=== PATIENT | male | born 1965 | race Two or more races ===

== ENCOUNTER 2019-06-21 11:07 | Inpatient (IN) | payer OTHER ==
[2019-06-21 11:59] VITALS: BMI 30.1
--- NOTE | 2019-06-21 14:45 | HP ---
CIWA Score Nausea/Vomitin Muscle Tremors: 4-Moderate,w/Arms Extend Anxiety: 4-Mod. Anxious/Guarded Agitation: 1-Slight > Activity Paroxysmal Sweats: No Perspiration Orientation: 3-Disoriented Date>2 days Tacttile Disturbances: 1-Very Mild Itch/Numbness Auditory Disturbances: 0-None Visual Disturbances: 0-None Headache: 2-Mild CIWA-Ar Total Score: 17 - Admission Criteria OASAS Guidelines: Admission for Medically Managed Detox: Requires at least one of the followin. CIWA greater than 12 2. Seizures within the past 24 hours 3. Delirium tremens within the past 24 hours 4. Hallucinations within the past 24 hours 5. Acute intervention needed for co occurring medical disorder 6. Acute intervention needed for co occurring psychiatric disorder 7. Severe withdrawal that cannot be handled at a lower level of care (continued vomiting, continued diarrhea, abnormal vital signs) requiring intravenous medication and/or fluids 8. Patient presents the following: CIWA greater than 12 Admission Criteria Met: Admission criteria met Admitting History and Physical - Admission History Source: Patient, Transfer Record Admission ROS [facility] Chief Complaint: I want to stop drinking, I want a better life, there is too much chaos and nothing gets accomplished when I drink. Allergies/Adverse Reactions: Allergies Allergy/AdvReac Type Severity Reaction Status Date / Time chlordiazepoxide AdvReac Intermediate confusion Verified 06/21/19 14:39 [From Librium] History of Present Illness: 54 yo gentleman here for detox from alcohol - does have black outs. Noted discharge paperwork from [facility] 06/20/19 - states he was there for intoxication and alcohol ketoacidosis - "CT head showed small SAH - likely to due fall from intoxication" and he was evaluted by neuro and told to f/u as outpatient and keppra started as preventive measure. urine tox + oxy and bzo - states he thinks he was given medication at [facility] for his headache and withdrawal symptoms - states he does not use oxy and does not even know what it is. Previously here for detox in 2016. Patient states he did well for awhile with not drinking for a while but when his a year ago he relapsed. He lives with his sister. Patient states he fell out of his bed while intoxicated - injured his head - needed craniotomy and was in a coma and then in a alf - he is unclear about dates but thinks two years ago. Patient with traumatic brain injury - repeatedly asking if he 'did anything wrong' and "am I in trouble". Exam Limitations: Clinical Condition - Ebola screening Have you traveled outside of the country in the last 21 days: No Have you had contact with anyone from an Ebola affected area: No - Review of Systems Constitutional: Malaise, Changes in sleep EENT: reports: No Symptoms Reported Respiratory: reports: No Symptoms reported Cardiac: reports: No Symptoms Reported GI: reports: Nausea, Poor Appetite, Indigestion, Abdominal cramping : reports: Frequency Musculoskeletal: reports: Muscle Pain, Muscle Weakness Integumentary: reports: Dryness Neuro: reports: Headache, Seizure, Tremors Endocrine: reports: No Symptoms Reported Hematology: reports: No Symptoms Reported Psychiatric: reports: Judgement Intact, Anxious Other Systems: Reviewed and Negative Patient History - Patient Medical History Hx Anemia: No Hx Asthma: No Hx Chronic Obstructive Pulmonary Disease (COPD): No Hx Cancer: No Hx Cardiac Disorders: No Hx Congestive Heart Failure: No Hx Hypertension: Yes Hx Hypercholesterolemia: No Hx Pacemaker: No HX Cerebrovascular Accident: No Hx Seizures: Yes Hx Dementia: No Hx Diabetes: Yes Hx Gastrointestinal Disorders: No Hx Liver Disease: No Hx Genitourinary Disorders: No Hx Sexually Transmitted Disorders: No Hx Renal Disease (ESRD): No Hx Thyroid Disease: No Hx Human Immunodeficiency Virus (HIV): No Hx Hepatitis C: No Hx Depression: Yes (hx meds - never hospitalized) Hx Suicide Attempt: No (denies) Hx Bipolar Disorder: No Hx Schizophrenia: No - Patient Surgical History Past Surgical History: Yes Hx Neurologic Surgery: No Hx Cataract Extraction: No Hx Cardiac Surgery: No Hx Lung Surgery: No Hx Breast Surgery: No Hx Breast Biopsy: No Hx Abdominal Surgery: No Hx Appendectomy: No Hx Cholecystectomy: No Hx Genitourinary Surgery: No Hx Section: No Hx Orthopedic Surgery: Yes (craniotomy ? 2016) Other Surgical History: RIGHT POSTERIOR NECK CYST REMOVED 2013 Anesthesia Reaction: No - PPD History Previous Implant?: Yes Documented Results: Negative w/o proof Implanted On Prior [facility] Admission?: Yes Date: 07/27/16 PPD to be Administered?: Yes - Reproductive History Patient is a Female of Child Bearing Age (11 -55 yrs old): No - Smoking Cessation Smoking history: Never smoked Have you smoked in the past 12 months: No Hx Chewing Tobacco Use: No Initiated information on smoking cessation: No - Substance & Tx. History Hx Alcohol Use: Yes Hx Substance Use: No Substance Use Type: Alcohol Hx Substance Use Treatment: Yes (detox, rehab) - Substances abused Alcohol Substance route: Oral Frequency: Daily Amount used: 2 pints vodka; six pack 16 oz beer Age of first use: 23 Date of last use: 06/21/19 Admission Physical Exam S - Vital Signs Vital Signs: Vital Signs - 24 hr 06/21/19 11:52 Temperature 97.2 F L Pulse Rate 74 Respiratory 20 Rate Blood Pressure 124/89 - Physical General Appearance: Yes: Nourished, Appropriately Dressed, Moderate Distress, Tremorous, Anxious HEENTM: Yes: EOMI, Hearing grossly Normal, Normal ENT Inspection, Normocephalic , Normal Voice Respiratory: Yes: Normal Breath Sounds, No Respiratory Distress Neck: Yes: No masses,lesions,Nodules Breast: Yes: Breast Exam Deferred Cardiology: Yes: Regular Rhythm, Regular Rate Abdominal: Yes: Flat, Soft Genitourinary: Yes: Frequency Back: Yes: Normal Inspection Musculoskeletal: Yes: full range of Motion, Gait Steady, Muscle Pain Extremities: Yes: Normal Inspection, Tremors Neurological: Yes: Alert, Other (healed craniotomy scar right side) Integumentary: Yes: Normal Color, Dry, Warm Lymphatic: Yes: Within Normal Limits - Diagnostic (1) Alcohol dependence with uncomplicated withdrawal Current Visit: Yes Status: Acute (2) Traumatic brain injury Current Visit: Yes Status: Acute Qualifiers: Encounter type: subsequent encounter Loss of consciousness presence/ duration: without LOC Qualified Code(s): S06.9X0D - Unspecified intracranial injury without loss of consciousness, subsequent encounter (3) SAH (subarachnoid hemorrhage) Current Visit: Yes Status: Acute Comment: small SAH noted on CT done at [facility] on 06/20/19 - for f/u with neuro as outpatient, put on keppra, avoid NSAIDS (4) Hypertension Current Visit: Yes Status: Chronic Qualifiers: Hypertension type: essential hypertension Qualified Code(s): I10 - Essential (primary) hypertension (5) Diabetes mellitus treated with oral medication Current Visit: Yes Status: Chronic Comment: states his BGM at home is about 120 Cleared for Admission [facility] - Detox or Rehab [facility] Level of Care: Medically Managed Detox Regimen/Protocol: Not Applicable (ativan) Breathalyzer - Breathalyzer Breathalyzer: 0.182 Urine Drug Screen - Test Device Lot number: [id number] Expiration date: 01/31/21 - Control Is test valid?: Yes - Results Drug screen NEGATIVE: No Urine drug screen results: OXY-Oxycodone, BZO-Benzodiazepines Inpatient Rehab Admission - Rehab Decision to Admit Inpatient rehab admission?: No
[2019-06-21] MEDS ORDERED: MAGNESIUM HYDROX 2400MG/30ML ORAL SUSPENSION 30 ML CUP PO PRN (15:00)
[2019-06-21] MEDS ORDERED: LORazepam 2 MG TABLET PO ONE (15:00)
[2019-06-21] MEDS ORDERED: BISMUTH SUBSALICYLATE 524 MG/30 ML UD PO PRN (15:00)
[2019-06-21] MEDS ORDERED: MAG HYDROX/AL HYDROX/SIMETH 30 ML UNIT-DOSE CUP PO PRN (15:00)
[2019-06-21] MEDS ORDERED: ACETAMINOPHEN 325 MG TABLET (FP) PO PRN (15:00)
[2019-06-21] MEDS ORDERED: MENTHOL/PHENOL 1 EACH UD MM PRN (15:00)
[2019-06-21] MEDS ORDERED: hydrOXYzine PAMOATE 25 MG CAPSULE (FP) PO PRN (15:00)
[2019-06-21] MEDS ORDERED: LORazepam 1 MG TABLET PO PRN (15:00)
[2019-06-21] MEDS ORDERED: MAGNESIUM CITRATE 300 ML BOTTLE PO PRN (15:00)
[2019-06-21] MEDS: LORazepam 2 MG TABLET PO SCH ×2 (17:37→22:10)
[2019-06-21] MEDS: metFORMIN HCL 500 MG TABLET (FP) PO SCH (17:37)
[2019-06-21] MEDS: MELATONIN 5 MG TABLETS PO PRN (22:10)
[2019-06-21] MEDS: THIAMINE HCL 100 MG TABLET (FP) PO SCH (22:10)
[2019-06-21] MEDS: levETIRAcetam 500 MG TABLET (FP) PO SCH (22:10)
[2019-06-22] MEDS: LORazepam 2 MG TABLET PO SCH ×4 (05:16→22:10)
[2019-06-22] MEDS: metFORMIN HCL 500 MG TABLET (FP) PO SCH ×2 (06:38→18:06)
[2019-06-22] MEDS: PRENATAL VITAMINS W/ FOLIC ACID TABLET (FP) PO SCH (10:28)
[2019-06-22] MEDS: levETIRAcetam 500 MG TABLET (FP) PO SCH ×2 (10:28→22:11)
[2019-06-22] MEDS: amLODIPine BESYLATE 10 MG TABLET (FP) PO SCH (10:28)
[2019-06-22 10:59] LABS: HEMATOCRIT 35.7 % (35.4-49); HEMOGLOBIN 12.3 GM/dL (11.7-16.9); MCH 27.5 pg (25.7-33.7); MCHC 34.3 g/dl (32.0-35.9); MEAN CELL VOLUME 80.1 fl (80-96); MEAN PLT VOLUME 8.8 fl (7.5-11.1); PLATELET COUNT 269 K/MM3 (134-434); RBC 4.46 M/mm3 (4.00-5.60); RDW 13.4 % (11.9-15.9); WHITE BLOOD COUNT 7.7 K/mm3 (4.0-10.0)
[2019-06-22 11:22] LABS: ALBUMIN 3.4 g/dl (3.4-5.0); BILIRUBIN,TOTAL 0.5 mg/dL (0.2-1); BLOOD UREA NITROGEN 14.4 mg/dL (7-18); CALCIUM 8.6 mg/dL (8.5-10.1); CREATININE 0.9 mg/dL (0.55-1.3); POTASSIUM 4.5 mmol/L (3.5-5.1); TOT PROT 6.6 g/dl (6.4-8.2)
--- NOTE | 2019-06-22 11:31 | CONSULT ---
[facility] Psychiatric Consult - Data Date of interview: 06/22/19 Admission source: Self-referred Identifying data: Mr Mckeon is a 54 years old single male, father of a 22 years old son, unemployed receiving public assistance, homeless seeking detox treatment for alcohol Substance Abuse History: Reports history of alcohol use. Refer to addiction counselor's summary for further information Medical History: Significant for seizure disorder, hypertension, dyslipidemia, type 2 diabetes mellitus and history of craniotomy after a fall. Psychiatric History: Reports that his first psychiatric contact was more than years ago when he was diagnosed with MDD by a psychiatrist as outpatient and started on antidepressant medication. Reports that he has been taking medication on & off since. Reports that he currently sees a staff psychiatrist at the alf where he resides and he is prescribed Prozac 40 mg/day. Denies previous psychiatric hospitalization contrary to what was repotrteed on a previous admission in July 2016. Denies previous suicidal attempt as well. At present, denies experiecing depressive symptoms, S/H ideation. Physical/Sexual Abuse/Trauma History: Denies history of being abused as a child as wel as DV relationship Additional Comment: Denies criminal history Mental Status Exam - Mental Status Exam Alert and Oriented to: Time, Place, Person Cognitive Function: Fair Patient Appearance: Well Groomed Mood: Hopeful, Euthymic Patient Behavior: Cooperative Speech Pattern: Clear Voice Loudness: Normal Thought Process: Intact, Goal Oriented Hallucinations: Denies Suicidal Ideation: Denies Homicidal Ideation: Denies Insight/Judgement: Poor Sleep: Well Appetite: Good Muscle strength/Tone: Normal Gait/Station: Normal Psychiatric Findings - Problem List ([place] 1, 2,3) (1) MDD (major depressive disorder) Current Visit: Yes Status: Chronic (2) Alcohol dependence with uncomplicated withdrawal Current Visit: Yes Status: Acute (3) Diabetes mellitus treated with oral medication Current Visit: Yes Status: Chronic Comment: states his BGM at home is about 120 (4) Hypertension Current Visit: Yes Status: Chronic Qualifiers: Hypertension type: essential hypertension Qualified Code(s): I10 - Essential (primary) hypertension (5) Dyslipidemia Current Visit: Yes Status: Chronic (6) Seizure disorder Current Visit: Yes Status: Chronic (7) SAH (subarachnoid hemorrhage) Current Visit: Yes Status: Resolved Comment: small SAH noted on CT done at [facility] on 06/20/19 - for f/u with neuro as outpatient, put on keppra, avoid NSAIDS (8) Traumatic brain injury Current Visit: Yes Status: Chronic Qualifiers: Encounter type: subsequent encounter Loss of consciousness presence/ duration: without LOC Qualified Code(s): S06.9X0D - Unspecified intracranial injury without loss of consciousness, subsequent encounter - Initial Treatment Plan Initial Treatment Plan: 1) Continue Prozac 40 mg po daily. 2) Continue inpatient detoxification
--- NOTE | 2019-06-22 12:02 | PN ---
S CIWA - CIWA Score Nausea/Vomitin-Mild Nausea/No Vomiting Muscle Tremors: 3 Anxiety: 4-Mod. Anxious/Guarded Agitation: 2 Paroxysmal Sweats: 2 Orientation: 0-Oriented Tacttile Disturbances: 1-Very Mild Itch/Numbness Auditory Disturbances: 0-None Visual Disturbances: 0-None Headache: 1-Very Mild CIWA-Ar Total Score: 14 BHS Progress Note (SOAP) Subjective: doing well with ativan detox regimen ate breakfast ambulating on hallway social with peers and staff Objective: 06/22/19 12:00 Vital Signs Temperature 97.6 F 06/22/19 09:43 Pulse Rate 93 H 06/22/19 09:43 Respiratory Rate 20 06/22/19 09:43 Blood Pressure 125/83 06/22/19 09:43 O2 Sat by Pulse Oximetry (%) Laboratory Last Values WBC 7.7 K/mm3 (4.0-10.0) 06/22/19 08:00 RBC 4.46 M/mm3 (4.00-5.60) 06/22/19 08:00 Hgb 12.3 GM/dL (11.7-16.9) 06/22/19 08:00 Hct 35.7 % (35.4-49) 06/22/19 08:00 MCV 80.1 fl (80-96) 06/22/19 08:00 MCH 27.5 pg (25.7-33.7) D 06/22/19 08:00 MCHC 34.3 g/dl (32.0-35.9) 06/22/19 08:00 RDW 13.4 % (11.9-15.9) 06/22/19 08:00 Plt Count 269 K/MM3 (134-434) D 06/22/19 08:00 MPV 8.8 fl (7.5-11.1) 06/22/19 08:00 Sodium 140 mmol/L (136-145) 06/22/19 08:00 Potassium 4.5 mmol/L (3.5-5.1) 06/22/19 08:00 Chloride 105 mmol/L (98-107) 06/22/19 08:00 Carbon Dioxide 26 mmol/L (21-32) 06/22/19 08:00 Anion Gap 9 MMOL/L (8-16) 06/22/19 08:00 BUN 14.4 mg/dL (7-18) 06/22/19 08:00 Creatinine 0.9 mg/dL (0.55-1.3) 06/22/19 08:00 Est GFR (CKD-EPI)AfAm 113.41 06/22/19 08:00 Est GFR (CKD-EPI)NonAf 97.85 06/22/19 08:00 POC Glucometer 118 UNITS (80-120) 06/22/19 05:15 Random Glucose 112 mg/dL (74-106) H 06/22/19 08:00 Calcium 8.6 mg/dL (8.5-10.1) 06/22/19 08:00 Total Bilirubin 0.5 mg/dL (0.2-1) 06/22/19 08:00 AST 15 U/L (15-37) 06/22/19 08:00 ALT 22 U/L (13-61) 06/22/19 08:00 Alkaline Phosphatase 135 U/L (45-117) H 06/22/19 08:00 Total Protein 6.6 g/dl (6.4-8.2) 06/22/19 08:00 Albumin 3.4 g/dl (3.4-5.0) 06/22/19 08:00 lab noted long history of diabetes Assessment: 06/22/19 12:01 alcohol withdrawal sx 06/22/19 12:03 report taking antihyperlipidemia medication patient can not remember the name nor dosage of the medication preferred pharmacy closed today will call tomorrow Plan: continue ativan detox regimen
[2019-06-22] MEDS: FLUoxetine HCL 20 MG CAPSULE (FP) PO SCH (15:12)
[2019-06-22] MEDS: ACETAMINOPHEN 325 MG TABLET (FP) PO PRN (19:59)
[2019-06-22] MEDS: MELATONIN 5 MG TABLETS PO PRN (22:11)
[2019-06-22] MEDS: THIAMINE HCL 100 MG TABLET (FP) PO SCH (22:11)
[2019-06-23] MEDS: LORazepam 1 MG TABLET PO SCH ×4 (05:39→22:38)
[2019-06-23] MEDS: ACETAMINOPHEN 325 MG TABLET (FP) PO PRN ×2 (05:41→16:56)
[2019-06-23] MEDS: metFORMIN HCL 500 MG TABLET (FP) PO SCH ×2 (08:05→16:55)
--- NOTE | 2019-06-23 09:57 | PN ---
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 call [phone] gemfibrozil 600 mg po daily confirmed Objective: 06/23/19 10:04 Vital Signs Temperature 98.5 F 06/23/19 09:03 Pulse Rate 91 H 06/23/19 09:03 Respiratory Rate 18 06/23/19 09:03 Blood Pressure 134/98 06/23/19 09:03 O2 Sat by Pulse Oximetry (%) Laboratory Last Values WBC 7.7 K/mm3 (4.0-10.0) 06/22/19 08:00 RBC 4.46 M/mm3 (4.00-5.60) 06/22/19 08:00 Hgb 12.3 GM/dL (11.7-16.9) 06/22/19 08:00 Hct 35.7 % (35.4-49) 06/22/19 08:00 MCV 80.1 fl (80-96) 06/22/19 08:00 MCH 27.5 pg (25.7-33.7) D 06/22/19 08:00 MCHC 34.3 g/dl (32.0-35.9) 06/22/19 08:00 RDW 13.4 % (11.9-15.9) 06/22/19 08:00 Plt Count 269 K/MM3 (134-434) D 06/22/19 08:00 MPV 8.8 fl (7.5-11.1) 06/22/19 08:00 Sodium 140 mmol/L (136-145) 06/22/19 08:00 Potassium 4.5 mmol/L (3.5-5.1) 06/22/19 08:00 Chloride 105 mmol/L (98-107) 06/22/19 08:00 Carbon Dioxide 26 mmol/L (21-32) 06/22/19 08:00 Anion Gap 9 MMOL/L (8-16) 06/22/19 08:00 BUN 14.4 mg/dL (7-18) 06/22/19 08:00 Creatinine 0.9 mg/dL (0.55-1.3) 06/22/19 08:00 Est GFR (CKD-EPI)AfAm 113.41 06/22/19 08:00 Est GFR (CKD-EPI)NonAf 97.85 06/22/19 08:00 POC Glucometer 94 UNITS (80-120) 06/23/19 05:40 Random Glucose 112 mg/dL (74-106) H 06/22/19 08:00 Calcium 8.6 mg/dL (8.5-10.1) 06/22/19 08:00 Total Bilirubin 0.5 mg/dL (0.2-1) 06/22/19 08:00 AST 15 U/L (15-37) 06/22/19 08:00 ALT 22 U/L (13-61) 06/22/19 08:00 Alkaline Phosphatase 135 U/L (45-117) H 06/22/19 08:00 Total Protein 6.6 g/dl (6.4-8.2) 06/22/19 08:00 Albumin 3.4 g/dl (3.4-5.0) 06/22/19 08:00 RPR Titer Nonreactive (NONREACTIVE) 06/22/19 08:00 lab noted Assessment: 06/23/19 10:05 alcohol withdrawal sx Plan: continue ativan detox regimen
[2019-06-23] MEDS: FLUoxetine HCL 20 MG CAPSULE (FP) PO SCH (10:04)
[2019-06-23] MEDS: PRENATAL VITAMINS W/ FOLIC ACID TABLET (FP) PO SCH (10:05)
[2019-06-23] MEDS: levETIRAcetam 500 MG TABLET (FP) PO SCH ×2 (10:05→22:38)
[2019-06-23] MEDS: amLODIPine BESYLATE 10 MG TABLET (FP) PO SCH (10:05)
[2019-06-23 10:53] LABS: CHOLESTEROL 188 mg/dL (50-200); HDL CHOLESTEROL 53 mg/dL (40-60); LDL CHOLESTEROL (ONLY SJRH) 114 mg/dL (5-100); TRIGLYCERIDES 119 mg/dL (0-150)
[2019-06-23] MEDS: METHOCARBAMOL 500 MG TABLET PO PRN (14:22)
[2019-06-23] MEDS: THIAMINE HCL 100 MG TABLET (FP) PO SCH (22:38)
[2019-06-24] MEDS ORDERED: LORazepam 0.5 MG TABLET PO PRN
[2019-06-24] MEDS: LORazepam 0.5 MG TABLET PO SCH ×4 (06:00→22:27)
[2019-06-24] MEDS: metFORMIN HCL 500 MG TABLET (FP) PO SCH ×2 (06:28→17:36)
[2019-06-24] MEDS: GEMFIBROZIL 600 MG TABLET (FP) PO SCH (06:29)
[2019-06-24] MEDS: PRENATAL VITAMINS W/ FOLIC ACID TABLET (FP) PO SCH (10:03)
[2019-06-24] MEDS: levETIRAcetam 500 MG TABLET (FP) PO SCH ×2 (10:03→22:27)
[2019-06-24] MEDS: FLUoxetine HCL 20 MG CAPSULE (FP) PO SCH (10:03)
[2019-06-24] MEDS: amLODIPine BESYLATE 10 MG TABLET (FP) PO SCH (10:03)
[2019-06-24] MEDS: ACETAMINOPHEN 325 MG TABLET (FP) PO PRN (11:39)
--- NOTE | 2019-06-24 13:14 | PN ---
S CIWA - CIWA Score Nausea/Vomitin-No Nausea/No Vomiting Muscle Tremors: 2 Anxiety: 2 Agitation: 2 Paroxysmal Sweats: No Perspiration Orientation: 0-Oriented Tacttile Disturbances: 0-None Auditory Disturbances: 0-None Visual Disturbances: 0-None Headache: 0-None Present CIWA-Ar Total Score: 6 BHS Progress Note (SOAP) Subjective: doing well with ativan detox regimen mild anxiety less tremor patient agrees return to [place] for follow up bring in medication list and lab report Objective: 06/24/19 13:11 Vital Signs Temperature 98.1 F 06/24/19 13:08 Pulse Rate 97 H 06/24/19 13:08 Respiratory Rate 18 06/24/19 13:08 Blood Pressure 144/94 06/24/19 13:08 O2 Sat by Pulse Oximetry (%) Laboratory Last Values WBC 7.7 K/mm3 (4.0-10.0) 06/22/19 08:00 RBC 4.46 M/mm3 (4.00-5.60) 06/22/19 08:00 Hgb 12.3 GM/dL (11.7-16.9) 06/22/19 08:00 Hct 35.7 % (35.4-49) 06/22/19 08:00 MCV 80.1 fl (80-96) 06/22/19 08:00 MCH 27.5 pg (25.7-33.7) D 06/22/19 08:00 MCHC 34.3 g/dl (32.0-35.9) 06/22/19 08:00 RDW 13.4 % (11.9-15.9) 06/22/19 08:00 Plt Count 269 K/MM3 (134-434) D 06/22/19 08:00 MPV 8.8 fl (7.5-11.1) 06/22/19 08:00 Sodium 140 mmol/L (136-145) 06/22/19 08:00 Potassium 4.5 mmol/L (3.5-5.1) 06/22/19 08:00 Chloride 105 mmol/L (98-107) 06/22/19 08:00 Carbon Dioxide 26 mmol/L (21-32) 06/22/19 08:00 Anion Gap 9 MMOL/L (8-16) 06/22/19 08:00 BUN 14.4 mg/dL (7-18) 06/22/19 08:00 Creatinine 0.9 mg/dL (0.55-1.3) 06/22/19 08:00 Est GFR (CKD-EPI)AfAm 113.41 06/22/19 08:00 Est GFR (CKD-EPI)NonAf 97.85 06/22/19 08:00 POC Glucometer 111 UNITS (80-120) 06/24/19 05:59 Random Glucose 112 mg/dL (74-106) H 06/22/19 08:00 Calcium 8.6 mg/dL (8.5-10.1) 06/22/19 08:00 Total Bilirubin 0.5 mg/dL (0.2-1) 06/22/19 08:00 AST 15 U/L (15-37) 06/22/19 08:00 ALT 22 U/L (13-61) 06/22/19 08:00 Alkaline Phosphatase 135 U/L (45-117) H 06/22/19 08:00 Total Protein 6.6 g/dl (6.4-8.2) 06/22/19 08:00 Albumin 3.4 g/dl (3.4-5.0) 06/22/19 08:00 Triglycerides 119 mg/dL (0-150) 06/23/19 08:00 Cholesterol 188 mg/dL (50-200) 06/23/19 08:00 Total LDL Cholesterol 114 mg/dL (5-100) H 06/23/19 08:00 HDL Cholesterol 53 mg/dL (40-60) 06/23/19 08:00 RPR Titer Nonreactive (NONREACTIVE) 06/22/19 08:00 lab noted Assessment: 06/24/19 13:13 alcohol withdrawal sx Plan: continue ativan detox regimen
[2019-06-24] MEDS: THIAMINE HCL 100 MG TABLET (FP) PO SCH (22:27)
[2019-06-25] MEDS ORDERED: LORazepam 0.5 MG TABLET PO ONE (05:00)
[2019-06-25] MEDS: GEMFIBROZIL 600 MG TABLET (FP) PO SCH (06:07)
[2019-06-25] MEDS: metFORMIN HCL 500 MG TABLET (FP) PO SCH (06:07)
[2019-06-25] MEDS: ACETAMINOPHEN 325 MG TABLET (FP) PO PRN (06:27)
[2019-06-25] MEDS: METHOCARBAMOL 500 MG TABLET PO PRN (06:29)
[2019-06-25 09:08] VITALS: BP 131/99; PULSE 91; TEMP 97.3
[2019-06-25] MEDS: levETIRAcetam 500 MG TABLET (FP) PO SCH (10:04)
[2019-06-25] MEDS: PRENATAL VITAMINS W/ FOLIC ACID TABLET (FP) PO SCH (10:04)
[2019-06-25] MEDS: FLUoxetine HCL 20 MG CAPSULE (FP) PO SCH (10:04)
[2019-06-25] MEDS: amLODIPine BESYLATE 10 MG TABLET (FP) PO SCH (10:04)
--- NOTE | 2019-06-25 15:11 | DS ---
[facility] Detox Discharge Summary Admission Date: 06/21/19 Discharge Date: 06/25/19 - History Present History: Alcohol Dependence Additional Comments: 54 years old male admitted on 06/21/19 for alcohol withdrawal sx management did well with ativan detox regimen no complication through out the detox stay patient is alert oriented x 3 respiratory clear lung bilaterally on auscultation abdomen soft round obese no rebound tenderness skin warm dry - Physical Exam Results Vital Signs: Vital Signs Temperature 97.3 F L 06/25/19 09:08 Pulse Rate 91 H 06/25/19 09:08 Respiratory Rate 16 06/25/19 09:08 Blood Pressure 131/99 06/25/19 09:08 O2 Sat by Pulse Oximetry (%) Pertinent Admission Physical Exam Findings: alcohol withdrawal sx Laboratory Last Values WBC 7.7 K/mm3 (4.0-10.0) 06/22/19 08:00 RBC 4.46 M/mm3 (4.00-5.60) 06/22/19 08:00 Hgb 12.3 GM/dL (11.7-16.9) 06/22/19 08:00 Hct 35.7 % (35.4-49) 06/22/19 08:00 MCV 80.1 fl (80-96) 06/22/19 08:00 MCH 27.5 pg (25.7-33.7) D 06/22/19 08:00 MCHC 34.3 g/dl (32.0-35.9) 06/22/19 08:00 RDW 13.4 % (11.9-15.9) 06/22/19 08:00 Plt Count 269 K/MM3 (134-434) D 06/22/19 08:00 MPV 8.8 fl (7.5-11.1) 06/22/19 08:00 Sodium 140 mmol/L (136-145) 06/22/19 08:00 Potassium 4.5 mmol/L (3.5-5.1) 06/22/19 08:00 Chloride 105 mmol/L (98-107) 06/22/19 08:00 Carbon Dioxide 26 mmol/L (21-32) 06/22/19 08:00 Anion Gap 9 MMOL/L (8-16) 06/22/19 08:00 BUN 14.4 mg/dL (7-18) 06/22/19 08:00 Creatinine 0.9 mg/dL (0.55-1.3) 06/22/19 08:00 Est GFR (CKD-EPI)AfAm 113.41 06/22/19 08:00 Est GFR (CKD-EPI)NonAf 97.85 06/22/19 08:00 POC Glucometer 106 UNITS (80-120) 06/25/19 06:12 Random Glucose 112 mg/dL (74-106) H 06/22/19 08:00 Calcium 8.6 mg/dL (8.5-10.1) 06/22/19 08:00 Total Bilirubin 0.5 mg/dL (0.2-1) 06/22/19 08:00 AST 15 U/L (15-37) 06/22/19 08:00 ALT 22 U/L (13-61) 06/22/19 08:00 Alkaline Phosphatase 135 U/L (45-117) H 06/22/19 08:00 Total Protein 6.6 g/dl (6.4-8.2) 06/22/19 08:00 Albumin 3.4 g/dl (3.4-5.0) 06/22/19 08:00 Triglycerides 119 mg/dL (0-150) 06/23/19 08:00 Cholesterol 188 mg/dL (50-200) 06/23/19 08:00 Total LDL Cholesterol 114 mg/dL (5-100) H 06/23/19 08:00 HDL Cholesterol 53 mg/dL (40-60) 06/23/19 08:00 RPR Titer Nonreactive (NONREACTIVE) 06/22/19 08:00 lab noted - Treatment Hospital Course: Detox Protocol Followed, Detoxed Safely, Responded well, Discharged Condition Good, Rehab Referral Accepted Patient has Accepted a Rehab Referral to[facility] - Medication Discharge Medications: Ambulatory Orders Amlodipine Besylate [Norvasc -] 10 mg PO DAILY 07/25/16 levETIRAcetam [Keppra -] 1,000 mg PO BID 07/25/16 Ergocalciferol [Vitamin D2] 50,000 unit PO Q7D@1000 06/21/19 Folic Acid 1 mg PO DAILY 06/21/19 Multivitamins [Multivit ([facility] Formulary)] 1 tab PO DAILY 06/21/19 Thiamine HCl [Vitamin B-1] 100 mg PO HS 06/21/19 metFORMIN HCL [Glucophage -] 500 mg PO BID 06/21/19 Gemfibrozil [Lopid -] 600 mg PO DAILY 06/23/19 - Diagnosis (1) Alcohol dependence with uncomplicated withdrawal Status: Acute (2) Diabetes mellitus treated with oral medication Status: Chronic (3) Hypertension Status: Chronic Qualifiers: Hypertension type: essential hypertension Qualified Code(s): I10 - Essential (primary) hypertension (4) Seizure Status: Chronic - AMA Did Patient Leave Against Medical Advice: No CIWA Score - CIWA Score Nausea/Vomitin-No Nausea/No Vomiting Muscle Tremors: 1-None Visible, but [place] Anxiety: 1-Mildly Anxious Agitation: 1-Slight > Activity Paroxysmal Sweats: No Perspiration Orientation: 0-Oriented Tacttile Disturbances: 0-None Auditory Disturbances: 0-None Visual Disturbances: 0-None Headache: 0-None Present CIWA-Ar Total Score: 3
== END 2019-06-25 11:40 | disposition home or self-care (01) | DRG 775 ==
LOC: YASAS 11:07 → Y3N 15:34
PROVIDERS: ADMIT Allergy & Immunology; ATTEND Allergy & Immunology
PROC: HZ2ZZZZ Detoxification Services for Substance Abuse Treatment (ICD-10-PCS; principal; 2019-06-21)
DX: F10.230 Alcohol dependence with withdrawal, uncomplicated (principal); F32.9 Major depressive disorder, single episode, unspecified; I10 Essential (primary) hypertension; E11.9 Type 2 diabetes mellitus without complications; G40.909 Epilepsy, unspecified, not intractable, without status epilepticus; E78.5 Hyperlipidemia, unspecified; Z88.8 Allergy status to other drugs, medicaments and biological substances; Z79.84 Long term (current) use of oral hypoglycemic drugs; Z87.820 Personal history of traumatic brain injury
CPT/HCPCS: 36415; 80053; 80061; 82962; 83721; 85027; 86593

== ENCOUNTER 2020-05-24 18:30 | Inpatient (IN) | payer OTHER ==
[2020-05-24 19:42] VITALS: BMI 27.1
--- NOTE | 2020-05-24 20:29 | BHS.RME ---
Substance Use & Tx History - Substance Use History Alcohol Substance amount: 10-12 drinks , 6 beers/day Frequency of use: Daily Substance route: Oral Physical/Psych/Mental Status - Behavior General Behavior: Increased activity (restlessness, agitation) Eye Contact: Normal - Cooperativeness Cooperativeness: Hostile - Thinking Thought Processes: Logical - Physical Health Problems Is patient presently having any pain?: No Does patient presently have any injuries (include location): No Does patient currently have a fever: No CIWA Nausea/Vomitin-Mild Nausea/No Vomiting Muscle Tremors: 4-Moderate,w/Arms Extend Anxiety: 2 Agitation: 4-Moderately Restless Paroxysmal Sweats: No Perspiration Orientation: 2-Disoriented Date<2 days Tacttile Disturbances: 0-None Auditory Disturbances: 0-None Visual Disturbances: 2-Mild Sensitivity Headache: 4-Moderately Severe CIWA-Ar Total Score: 19
--- NOTE | 2020-05-24 20:34 | HP ---
CIWA Score Nausea/Vomitin-Mild Nausea/No Vomiting Muscle Tremors: 4-Moderate,w/Arms Extend Anxiety: 2 Agitation: 4-Moderately Restless Paroxysmal Sweats: No Perspiration Orientation: 2-Disoriented Date<2 days Tacttile Disturbances: 0-None Auditory Disturbances: 0-None Visual Disturbances: 2-Mild Sensitivity Headache: 4-Moderately Severe CIWA-Ar Total Score: 19 - Admission Criteria OASAS Guidelines: Admission for Medically Managed Detox: Requires at least one of the followin. CIWA greater than 12 2. Seizures within the past 24 hours 3. Delirium tremens within the past 24 hours 4. Hallucinations within the past 24 hours 5. Acute intervention needed for co occurring medical disorder 6. Acute intervention needed for co occurring psychiatric disorder 7. Severe withdrawal that cannot be handled at a lower level of care (continued vomiting, continued diarrhea, abnormal vital signs) requiring intravenous medication and/or fluids 8. Admitting History and Physical - Smoking History Smoking history: Never smoked Have you smoked in the past 12 months: No - Alcohol/Substance Use Hx Alcohol Use: Yes Admission [facility] Allergies/Adverse Reactions: Allergies Allergy/AdvReac Type Severity Reaction Status Date / Time No Known Allergies Allergy Verified 05/24/20 20:38 History of Present Illness: 54 y.o. male requesting detox from alcohol use , reports 6 beers and 10 drinks /day x 20 years with minimal periods of sobriety . Denies seizures , reports occasional blackouts , tremors if not drinking , starts drinking in the mornings . pt is poor historian due to intoxication , current CHARLY 0.322 PMHX : HTN on Lisinopril , DM on Metformin, depression denies SI / HI . PShx : SDH 3 years ago 2/2 fall @ home . Exam Limitations: Clinical Condition, Intoxication - Review of Systems Constitutional: Loss of Appetite EENT: reports: Other (glasses) Respiratory: reports: No Symptoms reported Cardiac: reports: No Symptoms Reported GI: reports: Nausea, Poor Appetite : reports: No Symptoms Reported Musculoskeletal: reports: No Symptoms Reported Integumentary: reports: No Symptoms Reported Neuro: reports: Headache, Tremors Endocrine: reports: See HPI Hematology: reports: No Symptoms Reported Psychiatric: reports: Agitated, Anxious, Disorientated Patient History - Patient Medical History Hx Anemia: No Hx Asthma: No Hx Chronic Obstructive Pulmonary Disease (COPD): No Hx Cancer: No Hx Cardiac Disorders: No Hx Congestive Heart Failure: No Hx Hypertension: Yes Hx Hypercholesterolemia: No Hx Pacemaker: No HX Cerebrovascular Accident: No Hx Seizures: Yes (2016) Hx Dementia: No Hx Diabetes: Yes Hx Gastrointestinal Disorders: No Hx Liver Disease: No Hx Genitourinary Disorders: No Hx Sexually Transmitted Disorders: No Hx Renal Disease (ESRD): No Hx Thyroid Disease: No Hx Human Immunodeficiency Virus (HIV): No Hx Hepatitis C: No Hx Depression: Yes Hx Suicide Attempt: No Hx Bipolar Disorder: No Hx Schizophrenia: No - Patient Surgical History Past Surgical History: Yes Hx Neurologic Surgery: No Hx Cataract Extraction: No Hx Cardiac Surgery: No Hx Lung Surgery: No Hx Breast Surgery: No Hx Breast Biopsy: No Hx Abdominal Surgery: No Hx Appendectomy: No Hx Cholecystectomy: No Hx Genitourinary Surgery: No Hx Section: No Hx Orthopedic Surgery: Yes (craniotomy ? 2015) Other Surgical History: RIGHT POSTERIOR NECK CYST REMOVED 2013 Anesthesia Reaction: No - PPD History Date: 07/27/16 - Smoking Cessation Smoking history: Never smoked Have you smoked in the past 12 months: No Hx Chewing Tobacco Use: No - Substances abused Alcohol Substance route: Oral Frequency: Daily Amount used: liquor- 3 pits Age of first use: 22 Date of last use: 05/24/20 Admission Physical Exam BHS - Vital Signs Vital Signs: Vital Signs - 24 hr 05/24/20 19:41 Temperature 97.8 F Pulse Rate 102 H Respiratory 18 Rate Blood Pressure 123/87 - Physical General Appearance: Yes: Moderate Distress, Intoxicated, Tremorous, Irritable, Anxious HEENTM: Yes: EOMI, Hearing grossly Normal, Normocephalic, Normal Voice Respiratory: Yes: Chest Non-Tender, Lungs Clear, Normal Breath Sounds, No Respiratory Distress, No Accessory Muscle Use Neck: Yes: No masses,lesions,Nodules, Trachea in good position Cardiology: Yes: Regular Rhythm, Regular Rate, S1, S2 Abdominal: Yes: Non Tender, Soft Musculoskeletal: Yes: Gait Steady Extremities: Yes: Normal Inspection, Normal Range of Motion, Non-Tender Neurological: Yes: Alert, Motor Strength 5/5, Disoriented Integumentary: Yes: Warm - Diagnostic (1) Alcohol intoxication Current Visit: Yes Status: Acute Qualifiers: Complication of substance-induced condition: uncomplicated Qualified Code(s): F10.920 - Alcohol use, unspecified with intoxication, uncomplicated Breathalyzer - Breathalyzer Breathalyzer: 0.322 Urine Drug Screen - Test Device Lot number: [id number] Expiration date: 04/06/22 - Control Is test valid?: Yes - Results Drug screen NEGATIVE: Yes Urine drug screen results: OXY-Oxycodone, BZO-Benzodiazepines Inpatient Rehab Admission - Rehab Decision to Admit Inpatient rehab admission?: No
[2020-05-24] MEDS ORDERED: MAG HYDROX/AL HYDROX/SIMETH 30 ML UNIT-DOSE CUP PO PRN (20:43)
[2020-05-24] MEDS ORDERED: MENTHOL/PHENOL 1 EACH UD MM PRN (20:43)
[2020-05-24] MEDS ORDERED: ONDANSETRON *ODT* 4 MG TABLET SL PRN (20:43)
[2020-05-24] MEDS ORDERED: MAGNESIUM HYDROX 2400MG/30ML ORAL SUSPENSION 30 ML CUP PO PRN (20:43)
[2020-05-24] MEDS ORDERED: MELATONIN 5 MG TABLETS PO PRN (20:43)
[2020-05-24] MEDS ORDERED: ACETAMINOPHEN 325 MG TABLET (FP) PO PRN ×2 (20:43)
[2020-05-24] MEDS ORDERED: MAGNESIUM CITRATE 300 ML BOTTLE PO PRN (20:43)
[2020-05-24] MEDS ORDERED: BISMUTH SUBSALICYLATE 524 MG/30 ML UD PO PRN (20:43)
[2020-05-24] MEDS ORDERED: chlordiazePOXIDE HCL 25 MG CAPSULE PO PRN (20:47)
[2020-05-24] MEDS: THIAMINE HCL 100 MG TABLET (FP) PO SCH (21:53)
[2020-05-24] MEDS: chlordiazePOXIDE HCL 25 MG CAPSULE PO SCH (22:02)
[2020-05-25] MEDS: chlordiazePOXIDE HCL 25 MG CAPSULE PO SCH ×4 (06:31→23:39)
[2020-05-25] MEDS: metFORMIN HCL 500 MG TABLET (FP) PO SCH ×2 (06:36→17:16)
[2020-05-25 10:29] LABS: ALBUMIN 3.6 g/dl (3.4-5.0); BLOOD UREA NITROGEN 18.2 mg/dL (7-18); CALCIUM 8.3 mg/dL (8.5-10.1); CREATININE 0.8 mg/dL (0.55-1.3); POTASSIUM 4.3 mmol/L (3.5-5.1)
[2020-05-25 10:30] LABS: BILIRUBIN,TOTAL 0.6 mg/dL (0.2-1); TOT PROT 7.2 g/dl (6.4-8.2)
[2020-05-25 10:31] LABS: HEMATOCRIT 36.7 % (35.4-49); HEMOGLOBIN 12.3 GM/dL (11.7-16.9); MCH 27.9 pg (25.7-33.7); MCHC 33.6 g/dl (32.0-35.9); MEAN PLT VOLUME 8.9 fl (7.5-11.1); PLATELET COUNT 248 K/MM3 (134-434); RBC 4.42 M/mm3 (4.00-5.60); RDW 13.2 % (11.9-15.9); WHITE BLOOD COUNT 5.7 K/mm3 (4.0-10.0)
[2020-05-25] MEDS: LISINOPRIL 20 MG TABLET (FP) PO SCH (10:32)
[2020-05-25] MEDS: PRENATAL VITAMINS W/ FOLIC ACID TABLET (FP) PO SCH (10:32)
[2020-05-25] MEDS: amLODIPine BESYLATE 10 MG TABLET (FP) PO SCH (10:32)
[2020-05-25] MEDS: IBUPROFEN 400 MG TABLET (FP) PO PRN (10:34)
[2020-05-25] MEDS: GEMFIBROZIL 600 MG TABLET (FP) PO SCH (12:09)
[2020-05-25] MEDS: METHOCARBAMOL 500 MG TABLET PO PRN (12:11)
--- NOTE | 2020-05-25 12:15 | PN ---
S CIWA - CIWA Score Nausea/Vomitin-No Nausea/No Vomiting Muscle Tremors: 3 Anxiety: 3 Agitation: 3 Paroxysmal Sweats: 3 Orientation: 0-Oriented Tacttile Disturbances: 0-None Auditory Disturbances: 0-None Visual Disturbances: 0-None Headache: 0-None Present CIWA-Ar Total Score: 12 BHS Progress Note (SOAP) Subjective: sweats shakes interrupted sleep agitation restless body aches Objective: 05/25/20 12:14 Vital Signs Temperature 97.8 F 05/25/20 09:24 Pulse Rate 90 05/25/20 09:24 Respiratory Rate 05/25/20 09:24 Blood Pressure 116/70 05/25/20 09:24 O2 Sat by Pulse Oximetry (%) 97 05/25/20 06:40 Laboratory Tests 05/24/20 05/25/20 05/25/20 23:06 06:34 08:00 WBC 5.7 RBC 4.42 Hgb 12.3 Hct 36.7 MCV 83.0 MCH 27.9 MCHC 33.6 RDW 13.2 Plt Count 248 MPV 8.9 Sodium Potassium Chloride Carbon Dioxide Anion Gap BUN Creatinine Est GFR (CKD-EPI)AfAm Est GFR (CKD-EPI)NonAf POC Glucometer 108 102 Random Glucose Calcium Total Bilirubin AST ALT Alkaline Phosphatase Total Protein Albumin 05/25/20 08:00 WBC RBC Hgb Hct MCV MCH MCHC RDW Plt Count MPV Sodium 140 Potassium 4.3 Chloride 105 Carbon Dioxide 26 Anion Gap 9 BUN 18.2 H Creatinine 0.8 Est GFR (CKD-EPI)AfAm 119.04 Est GFR (CKD-EPI)NonAf 102.71 POC Glucometer Random Glucose 97 Calcium 8.3 L Total Bilirubin 0.6 AST 19 ALT 21 Alkaline Phosphatase 66 Total Protein 7.2 Albumin 3.6 labs noted mildly high BUN encouraged fluids aaox3 ambulating no acute distress Assessment: 05/25/20 12:14 withdrawals Plan: continue detox increase fluids
[2020-05-25] MEDS: traZODone HCL 50 MG TABLET (FP) PO SCH (23:39)
[2020-05-25] MEDS: THIAMINE HCL 100 MG TABLET (FP) PO SCH (23:39)
[2020-05-26] MEDS: chlordiazePOXIDE HCL 25 MG CAPSULE PO SCH ×4 (06:03→23:16)
[2020-05-26] MEDS: metFORMIN HCL 500 MG TABLET (FP) PO SCH ×2 (07:55→17:48)
[2020-05-26] MEDS: amLODIPine BESYLATE 10 MG TABLET (FP) PO SCH (10:11)
[2020-05-26] MEDS: GEMFIBROZIL 600 MG TABLET (FP) PO SCH (10:11)
[2020-05-26] MEDS: PRENATAL VITAMINS W/ FOLIC ACID TABLET (FP) PO SCH (10:11)
[2020-05-26] MEDS: LISINOPRIL 20 MG TABLET (FP) PO SCH (10:12)
[2020-05-26] MEDS: METHOCARBAMOL 500 MG TABLET PO PRN (10:13)
--- NOTE | 2020-05-26 13:08 | PN ---
[facility] CIWA - CIWA Score Nausea/Vomitin-No Nausea/No Vomiting Muscle Tremors: 3 Anxiety: 2 Agitation: 3 Paroxysmal Sweats: 3 Orientation: 0-Oriented Tacttile Disturbances: 0-None Auditory Disturbances: 0-None Visual Disturbances: 0-None Headache: 0-None Present CIWA-Ar Total Score: 11 S Progress Note (SOAP) Subjective: sweats shakes interrupted sleep body aches anxiety restless Objective: 05/26/20 13:07 Vital Signs Temperature 98.1 F 05/26/20 08:25 Pulse Rate 90 05/26/20 08:25 Respiratory Rate 15 05/26/20 08:25 Blood Pressure 142/105 H 05/26/20 08:25 O2 Sat by Pulse Oximetry (%) 99 05/26/20 08:25 Laboratory Tests 05/24/20 05/25/20 05/25/20 23:06 06:34 08:00 WBC RBC Hgb Hct MCV MCH MCHC RDW Plt Count MPV Sodium Potassium Chloride Carbon Dioxide Anion Gap BUN Creatinine Est GFR (CKD-EPI)AfAm Est GFR (CKD-EPI)NonAf POC Glucometer 108 102 Random Glucose Calcium Total Bilirubin AST ALT Alkaline Phosphatase Total Protein Albumin Syphilis Serology Non-reactive 05/25/20 05/25/20 05/25/20 08:00 08:00 16:54 WBC 5.7 RBC 4.42 Hgb 12.3 Hct 36.7 MCV 83.0 MCH 27.9 MCHC 33.6 RDW 13.2 Plt Count 248 MPV 8.9 Sodium 140 Potassium 4.3 Chloride 105 Carbon Dioxide 26 Anion Gap 9 BUN 18.2 H Creatinine 0.8 Est GFR (CKD-EPI)AfAm 119.04 Est GFR (CKD-EPI)NonAf 102.71 POC Glucometer 136 Random Glucose 97 Calcium 8.3 L Total Bilirubin 0.6 AST 19 ALT 21 Alkaline Phosphatase 66 Total Protein 7.2 Albumin 3.6 Syphilis Serology 05/26/20 06:59 WBC RBC Hgb Hct MCV MCH MCHC RDW Plt Count MPV Sodium Potassium Chloride Carbon Dioxide Anion Gap BUN Creatinine Est GFR (CKD-EPI)AfAm Est GFR (CKD-EPI)NonAf POC Glucometer 124 Random Glucose Calcium Total Bilirubin AST ALT Alkaline Phosphatase Total Protein Albumin Syphilis Serology aaox3 ambulating no acute distress elevated BP noted; will f/u after medication given Assessment: 05/26/20 13:07 withdrawals Plan: continue detox increase fluids f/u with elevated BP
[2020-05-26] MEDS: IBUPROFEN 400 MG TABLET (FP) PO PRN (17:48)
[2020-05-26] MEDS: hydrOXYzine PAMOATE 25 MG CAPSULE (FP) PO PRN (17:48)
[2020-05-26] MEDS: THIAMINE HCL 100 MG TABLET (FP) PO SCH (23:16)
[2020-05-26] MEDS: traZODone HCL 50 MG TABLET (FP) PO SCH (23:16)
[2020-05-27] MEDS ORDERED: chlordiazePOXIDE HCL 10 MG CAPSULE PO PRN
[2020-05-27] MEDS: chlordiazePOXIDE HCL 10 MG CAPSULE PO SCH ×4 (05:32→23:56)
[2020-05-27] MEDS: metFORMIN HCL 500 MG TABLET (FP) PO SCH ×2 (07:10→17:43)
[2020-05-27] MEDS: PRENATAL VITAMINS W/ FOLIC ACID TABLET (FP) PO SCH (10:15)
[2020-05-27] MEDS: GEMFIBROZIL 600 MG TABLET (FP) PO SCH (10:15)
[2020-05-27] MEDS: LISINOPRIL 20 MG TABLET (FP) PO SCH (10:15)
[2020-05-27] MEDS: hydrOXYzine PAMOATE 25 MG CAPSULE (FP) PO PRN (10:16)
[2020-05-27] MEDS: amLODIPine BESYLATE 10 MG TABLET (FP) PO SCH (10:18)
--- NOTE | 2020-05-27 13:49 | PN ---
S CIWA - CIWA Score Nausea/Vomitin-No Nausea/No Vomiting Muscle Tremors: 3 Anxiety: 2 Agitation: 2 Paroxysmal Sweats: 2 Orientation: 0-Oriented Tacttile Disturbances: 0-None Auditory Disturbances: 0-None Visual Disturbances: 0-None Headache: 0-None Present CIWA-Ar Total Score: 9 BHS Progress Note (SOAP) Subjective: sweats shakes interrupted sleep Objective: 05/27/20 13:49 Vital Signs Temperature 96.8 F L 05/27/20 13:01 Pulse Rate 96 H 05/27/20 13:01 Respiratory Rate 20 05/27/20 13:01 Blood Pressure 134/94 05/27/20 13:01 O2 Sat by Pulse Oximetry (%) 98 05/27/20 13:01 Laboratory Tests 05/24/20 05/24/20 05/25/20 09:15 23:06 06:34 WBC RBC Hgb Hct MCV MCH MCHC RDW Plt Count MPV Sodium Potassium Chloride Carbon Dioxide Anion Gap BUN Creatinine Est GFR (CKD-EPI)AfAm Est GFR (CKD-EPI)NonAf POC Glucometer 108 102 Random Glucose Calcium Total Bilirubin AST ALT Alkaline Phosphatase Total Protein Albumin Syphilis Serology COVID-19 ([facility]ONEY) Not detected 05/25/20 05/25/20 05/25/20 08:00 08:00 08:00 WBC 5.7 RBC 4.42 Hgb 12.3 Hct 36.7 MCV 83.0 MCH 27.9 MCHC 33.6 RDW 13.2 Plt Count 248 MPV 8.9 Sodium 140 Potassium 4.3 Chloride 105 Carbon Dioxide 26 Anion Gap 9 BUN 18.2 H Creatinine 0.8 Est GFR (CKD-EPI)AfAm 119.04 Est GFR (CKD-EPI)NonAf 102.71 POC Glucometer Random Glucose 97 Calcium 8.3 L Total Bilirubin 0.6 AST 19 ALT 21 Alkaline Phosphatase 66 Total Protein 7.2 Albumin 3.6 Syphilis Serology Non-reactive COVID-19 (HONEY) 05/25/20 05/26/20 05/26/20 16:54 06:59 17:43 WBC RBC Hgb Hct MCV MCH MCHC RDW Plt Count MPV Sodium Potassium Chloride Carbon Dioxide Anion Gap BUN Creatinine Est GFR (CKD-EPI)AfAm Est GFR (CKD-EPI)NonAf POC Glucometer 136 124 143 Random Glucose Calcium Total Bilirubin AST ALT Alkaline Phosphatase Total Protein Albumin Syphilis Serology COVID-19 (HONEY) 05/27/20 05:31 WBC RBC Hgb Hct MCV MCH MCHC RDW Plt Count MPV Sodium Potassium Chloride Carbon Dioxide Anion Gap BUN Creatinine Est GFR (CKD-EPI)AfAm Est GFR (CKD-EPI)NonAf POC Glucometer 115 Random Glucose Calcium Total Bilirubin AST ALT Alkaline Phosphatase Total Protein Albumin Syphilis Serology COVID-19 (HONEY) labs noted aaox3 ambulating no acute distress Assessment: 05/27/20 13:57 withdrawals Plan: continue detox
[2020-05-27] MEDS: THIAMINE HCL 100 MG TABLET (FP) PO SCH (23:56)
[2020-05-27] MEDS: traZODone HCL 50 MG TABLET (FP) PO SCH (23:56)
[2020-05-28] MEDS ORDERED: chlordiazePOXIDE HCL 10 MG CAPSULE PO SCH (05:00)
[2020-05-28] MEDS: hydrOXYzine PAMOATE 25 MG CAPSULE (FP) PO PRN (05:34)
[2020-05-28] MEDS: metFORMIN HCL 500 MG TABLET (FP) PO SCH (07:58)
[2020-05-28 09:23] VITALS: BP 138/87; PULSE 102; TEMP 98
--- NOTE | 2020-05-28 09:42 | PN ---
S CIWA - CIWA Score Nausea/Vomitin-No Nausea/No Vomiting Muscle Tremors: None Anxiety: 1-Mildly Anxious Agitation: 1-Slight > Activity Paroxysmal Sweats: No Perspiration Orientation: 0-Oriented Tacttile Disturbances: 0-None Auditory Disturbances: 0-None Visual Disturbances: 0-None Headache: 0-None Present CIWA-Ar Total Score: 2 BHS Progress Note (SOAP) Subjective: feeling better little anxiety Objective: 05/28/20 09:41 Vital Signs Temperature 98.0 F 05/28/20 09:04 Pulse Rate 102 H 05/28/20 09:04 Respiratory Rate 05/28/20 09:04 Blood Pressure 138/87 05/28/20 09:04 O2 Sat by Pulse Oximetry (%) 100 05/28/20 09:04 Laboratory Tests 05/24/20 05/24/20 05/25/20 09:15 23:06 06:34 WBC RBC Hgb Hct MCV MCH MCHC RDW Plt Count MPV Sodium Potassium Chloride Carbon Dioxide Anion Gap BUN Creatinine Est GFR (CKD-EPI)AfAm Est GFR (CKD-EPI)NonAf POC Glucometer 108 102 Random Glucose Calcium Total Bilirubin AST ALT Alkaline Phosphatase Total Protein Albumin Syphilis Serology COVID-19 (HONEY) Not detected 05/25/20 05/25/20 05/25/20 08:00 08:00 08:00 WBC 5.7 RBC 4.42 Hgb 12.3 Hct 36.7 MCV 83.0 MCH 27.9 MCHC 33.6 RDW 13.2 Plt Count 248 MPV 8.9 Sodium 140 Potassium 4.3 Chloride 105 Carbon Dioxide 26 Anion Gap 9 BUN 18.2 H Creatinine 0.8 Est GFR (CKD-EPI)AfAm 119.04 Est GFR (CKD-EPI)NonAf 102.71 POC Glucometer Random Glucose 97 Calcium 8.3 L Total Bilirubin 0.6 AST 19 ALT 21 Alkaline Phosphatase 66 Total Protein 7.2 Albumin 3.6 Syphilis Serology Non-reactive COVID-19 ([facility]ONEY) 05/25/20 05/26/20 05/26/20 16:54 06:59 17:43 WBC RBC Hgb Hct MCV MCH MCHC RDW Plt Count MPV Sodium Potassium Chloride Carbon Dioxide Anion Gap BUN Creatinine Est GFR (CKD-EPI)AfAm Est GFR (CKD-EPI)NonAf POC Glucometer 136 124 143 Random Glucose Calcium Total Bilirubin AST ALT Alkaline Phosphatase Total Protein Albumin Syphilis Serology COVID-19 (HONEY) 05/27/20 05/27/20 05/28/20 05:31 16:52 05:32 WBC RBC Hgb Hct MCV MCH MCHC RDW Plt Count MPV Sodium Potassium Chloride Carbon Dioxide Anion Gap BUN Creatinine Est GFR (CKD-EPI)AfAm Est GFR (CKD-EPI)NonAf POC Glucometer 115 136 105 Random Glucose Calcium Total Bilirubin AST ALT Alkaline Phosphatase Total Protein Albumin Syphilis Serology COVID-19 (HONEY) labs noted aaox3 ambulating no acute distress lungs CTA Assessment: 05/28/20 09:41 no s/s of withdrawals Plan: d/c today to rehab
--- NOTE | 2020-05-28 09:44 | DS ---
[facility] Detox Discharge Summary Admission Date: 05/24/20 Discharge Date: 05/28/20 - History Present History: Alcohol Dependence - Physical Exam Results Vital Signs: Vital Signs Temperature 98.0 F 05/28/20 09:04 Pulse Rate 102 H 05/28/20 09:04 Respiratory Rate 05/28/20 09:04 Blood Pressure 138/87 05/28/20 09:04 O2 Sat by Pulse Oximetry (%) 100 05/28/20 09:04 Pertinent Admission Physical Exam Findings: Vital Signs Temperature 98.0 F 05/28/20 09:04 Pulse Rate 102 H 05/28/20 09:04 Respiratory Rate 05/28/20 09:04 Blood Pressure 138/87 05/28/20 09:04 O2 Sat by Pulse Oximetry (%) 100 05/28/20 09:04 Laboratory Tests 05/24/20 05/24/20 05/25/20 09:15 23:06 06:34 WBC RBC Hgb Hct MCV MCH MCHC RDW Plt Count MPV Sodium Potassium Chloride Carbon Dioxide Anion Gap BUN Creatinine Est GFR (CKD-EPI)AfAm Est GFR (CKD-EPI)NonAf POC Glucometer 108 102 Random Glucose Calcium Total Bilirubin AST ALT Alkaline Phosphatase Total Protein Albumin Syphilis Serology COVID-19 ([facility]ONEY) Not detected 05/25/20 05/25/20 05/25/20 08:00 08:00 08:00 WBC 5.7 RBC 4.42 Hgb 12.3 Hct 36.7 MCV 83.0 MCH 27.9 MCHC 33.6 RDW 13.2 Plt Count 248 MPV 8.9 Sodium 140 Potassium 4.3 Chloride 105 Carbon Dioxide 26 Anion Gap 9 BUN 18.2 H Creatinine 0.8 Est GFR (CKD-EPI)AfAm 119.04 Est GFR (CKD-EPI)NonAf 102.71 POC Glucometer Random Glucose 97 Calcium 8.3 L Total Bilirubin 0.6 AST 19 ALT 21 Alkaline Phosphatase 66 Total Protein 7.2 Albumin 3.6 Syphilis Serology Non-reactive COVID-19 ([facility]ONEY) 05/25/20 05/26/20 05/26/20 16:54 06:59 17:43 WBC RBC Hgb Hct MCV MCH MCHC RDW Plt Count MPV Sodium Potassium Chloride Carbon Dioxide Anion Gap BUN Creatinine Est GFR (CKD-EPI)AfAm Est GFR (CKD-EPI)NonAf POC Glucometer 136 124 143 Random Glucose Calcium Total Bilirubin AST ALT Alkaline Phosphatase Total Protein Albumin Syphilis Serology COVID-19 (HONEY) 05/27/20 05/27/20 05/28/20 05:31 16:52 05:32 WBC RBC Hgb Hct MCV MCH MCHC RDW Plt Count MPV Sodium Potassium Chloride Carbon Dioxide Anion Gap BUN Creatinine Est GFR (CKD-EPI)AfAm Est GFR (CKD-EPI)NonAf POC Glucometer 115 136 105 Random Glucose Calcium Total Bilirubin AST ALT Alkaline Phosphatase Total Protein Albumin Syphilis Serology COVID-19 ([facility]ONEY) labs noted aaox3 ambulating no acute distress lungs CTA - Treatment Hospital Course: Detox Protocol Followed, Detoxed Safely, Responded well, Discharged Condition Good, Rehab Referral Accepted - Medication Discharge Medications: Ambulatory Orders Amlodipine Besylate [Norvasc -] 10 mg PO DAILY 07/25/16 Ergocalciferol [Vitamin D2] 50,000 unit PO Q7D@1000 06/21/19 Folic Acid 1 mg PO DAILY 06/21/19 Multivitamins [Multivit ([facility] Formulary)] 1 tab PO DAILY 06/21/19 Thiamine HCl [Vitamin B-1] 100 mg PO HS 06/21/19 metFORMIN HCL [Glucophage -] 500 mg PO BID 06/21/19 Gemfibrozil [Lopid -] 600 mg PO DAILY 06/23/19 Doxepin HCl [Sinequan -] 25 mg PO HS 05/24/20 Ibuprofen [Motrin -] 800 mg PO TID 05/24/20 Lisinopril [Prinivil] 20 mg PO DAILY 05/24/20 - Diagnosis (1) Alcohol intoxication Current Visit: Yes Status: Acute Qualifiers: Complication of substance-induced condition: uncomplicated Qualified Code(s): F10.920 - Alcohol use, unspecified with intoxication, uncomplicated (2) Alcohol dependence with uncomplicated withdrawal Current Visit: No Status: Acute (3) Diabetes mellitus treated with oral medication Current Visit: No Status: Chronic (4) Dry skin dermatitis Current Visit: No Status: Chronic (5) Dyslipidemia Current Visit: No Status: Chronic (6) Hypertension Current Visit: No Status: Chronic Qualifiers: Hypertension type: essential hypertension Qualified Code(s): I10 - Essential (primary) hypertension (7) Liver enzyme elevation Current Visit: No Status: Chronic (8) MDD (major depressive disorder) Current Visit: No Status: Chronic (9) Seizure Current Visit: No Status: Chronic (10) Seizure disorder Current Visit: No Status: Chronic (11) Traumatic brain injury Current Visit: No Status: Chronic Qualifiers: Encounter type: subsequent encounter Loss of consciousness presence/duration: without LOC Qualified Code(s): S06.9X0D - Unspecified intracranial injury without loss of consciousness, subsequent encounter (12) SAH (subarachnoid hemorrhage) Current Visit: No Status: Resolved - AMA Did Patient Leave Against Medical Advice: No
[2020-05-28] MEDS: amLODIPine BESYLATE 10 MG TABLET (FP) PO SCH (10:25)
[2020-05-28] MEDS: PRENATAL VITAMINS W/ FOLIC ACID TABLET (FP) PO SCH (10:25)
[2020-05-28] MEDS: LISINOPRIL 20 MG TABLET (FP) PO SCH (10:25)
[2020-05-28] MEDS: GEMFIBROZIL 600 MG TABLET (FP) PO SCH (10:25)
[2020-05-29] MEDS ORDERED: chlordiazePOXIDE HCL 10 MG CAPSULE PO ONE (05:00)
== END 2020-05-28 12:51 | disposition other institution (70) | DRG 775 ==
LOC: YASAS 18:30 → Y6N 20:59
PROVIDERS: ADMIT Allergy & Immunology; ATTEND Allergy & Immunology
PROC: HZ2ZZZZ Detoxification Services for Substance Abuse Treatment (ICD-10-PCS; principal; 2020-05-24)
DX: F10.230 Alcohol dependence with withdrawal, uncomplicated (principal); F32.9 Major depressive disorder, single episode, unspecified; F10.220 Alcohol dependence with intoxication, uncomplicated; I10 Essential (primary) hypertension; E78.5 Hyperlipidemia, unspecified; E11.9 Type 2 diabetes mellitus without complications; Z79.84 Long term (current) use of oral hypoglycemic drugs; L85.3 Xerosis cutis; R74.8 Abnormal levels of other serum enzymes; Z86.69 Personal history of other diseases of the nervous system and sense organs; Z87.820 Personal history of traumatic brain injury; Z98.890 Other specified postprocedural states
CPT/HCPCS: 36415; 80053; 82962; 85027; 86780; U0003

== ENCOUNTER 2020-05-28 13:10 | Inpatient (IN) | payer OTHER ==
--- OUTSIDE RECORDS SUMMARY | 2020-05-28 14:41 | XMS ---
:1965 Author Organization [facility] Care Team Providers Name Role Phone SAHIL BLACK MD Unavailable Unavailable MD MARIA DEL CARMEN Unavailable Unavailable MD STEPHANIE Unavailable Unavailable Re-disclosure Warning The records that you are about to access may contain information from federally- assisted alcohol or drug abuse programs. If such information is present, then the following federally mandated warning applies: This information has been disclosed to you from records protected by federal confidentiality rules (42 CFR part 2). The federal rules prohibit you from making any further disclosure of this information unless further disclosure is expressly permitted by the written consent of the person to whom it pertains or as otherwise permitted by 42 CFR part 2. A general authorization for the release of medical or other information is NOT sufficient for this purpose. The Federal rules restrict any use of the information to criminally investigate or prosecute any alcohol or drug abuse patient.The records that you are about to access may contain highly sensitive health information, the redisclosure of which is protected by Article 27-F of the [facility] Public Health law. If you continue you may haveaccess to information: Regarding HIV / AIDS; Provided by facilities licensed or operated by the [facility] Office of Mental Health; or Provided by the [facility] Office for People With Developmental Disabilities. If such information is present, then the following [facility] mandated warning applies: This information has been disclosed to you from confidential records which are protected by state law. State law prohibits you from making any further disclosure of this information without the specific written consent of the person to whom it pertains, or as otherwise permitted by law. Any unauthorized further disclosure in violation of state law may result in a fine or correction sentence or both. A general authorization for the release of medical or other information is NOT sufficient authorization for further disclosure. Encounters Encounter Providers Location Date Indications Data Source(s ) Inpatient Attender: SAHIL MYERSV-1D 06/25/2019 [facility] SURBNSHANYANAttender: 04:01:00 PM Antwan THOMAS EDT - ALOEZOSAdmitter: 07/09/2019 TREY JOYCE 10:12:00 PM EST Patient discharged. Outpatient ST 06/25/2019 12:17:00 PM EDT - 019 [facility] 08:27:00 PM EDT Patient discharged. Medications Medication Brand Start Product Dose Route Administrative Pharmacy [facility] Indications Reaction Description Data Name Date Form Instructions Instructions Source(s) Metformin metFOR ORAL complet metFORMI N [facility] hydrochlori MIN 2018 Table ed HCl - 500 MG [facility] 500 MG HCl - 12:00: t ORAL Tablet Hospital Oral Tablet 500 MG 00 AM ORAL EST Tablet Gemfibrozil Gemfib ORAL complet Gemfib rozil [facility] 600 MG Oral rozil 2018 Table ed - 600 MG Vi ncents Tablet - 600 12:00: t ORAL Tablet Hos pital MG 00 AM ORAL EST Tablet Acamprosate Acampr ORAL complet Acampr osate [facility] calcium 333 osate 2018 Table ed Calcium - [facility] MG Delayed Calciu 12:00: t 333 MG ORA L Hospital Release m - 00 AM Tablet, Oral Tablet 333 MG EST Delayed ORAL Release Tablet , Delaye d Releas e Levetiracet levETI ORAL complet levETI RAceta [facility] am 1000 MG RAceta 2018 Table ed m AvPak - [facility] Oral Tablet m 12:00: t 1000 MG ORA L [facility] AvPak 00 AM Tablet - 1000 EST MG ORAL Tablet Fluoxetine PROzac ORAL complet PROzac - 40 [facility] 40 MG Oral - 40 2018 Capsu ed MG ORAL Will nts Capsule MG 12:00: le Capsule Hospita l [Prozac] ORAL 00 AM Capsul EST e Amlodipine Norvas ORAL complet Norvasc - 10 [facility] 10 MG Oral c - 10 2018 Table ed MG ORAL Ran cents Tablet MG 12:00: t Tablet Hospital [[facility]] ORAL 00 AM Tablet EST Insurance Providers Payer name Policy type Policy ID Covered Covered libertarian's Policy P soraya / Coverage libertarian ID relationship to Anand Inf ormation type anand [employer] [id number] SP [id number] R [employer] [id number] SP [id number] R SELF PAY 00 Self 00 MEDICAID INP [id number] Self [id number] R RE[facility]AB [facility] [id number] Self [id number] FIRST Problems, Conditions, and Diagnoses Code Display Name Description Problem Type Effective Data Sour ce(s) Dates F10.20 Alcohol dependence, Alcohol Diagnosis 07/09/2019 [facility]com[facility] dependence, 10:48:00 AM Hospital uncomplicated EST Results ID Date Data Source [id number] 05/24/2020 09:15:00 AM EDT [facility] Name Value Range Interpretation Description Data Sup porting Code Source(s) Document(s ) SARS [facility] coronavirus 2 RNA This lab was ordered by [facility] rebeca Corbin and reported by [facility]. ID Date Data Source [id number] 02/04/2020 10:48:00 AM EDT [facility] Name Value Range Interpretation Code Description Data Fatimah rce(s) Supporting Document(s ) SARS-CoV-2 [facility] RNA Resp Ql HONEY+probe [facility] reported by [facility]. ID Date Data Source [id number] 02/04/2020 10:48:00 AM EDT [facility] Name Value Range Interpretation Code Description Data Fatimah rce(s) Supporting Document(s ) SARS-CoV-2 [facility] RNA Resp Ql HONEY+probe [facility] lab [facility] reported by [facility]. ID Date Data Source [id number] 02/04/2020 10:48:00 AM EDT [facility] Name Value Range Interpretation Code Description Data Fatimah rce(s) Supporting Document(s ) 2019-nCoV [facility] RNA XXX HONEY+probe- Imp This lab [facility] and reported by [facility]. Procedure Vital Signs ID Date Data Source UNK Name Value Range Interpretation Code Description Data Source(s) Diastolic blood 99 mmHg 99 mmHg [facility] pressure [facility] Systolic blood 156 mmHg 156 mmHg [facility] Respiratory rate 18 bpm 18 bpm [facility] Heart rate 93 bpm 93 bpm [facility] Body temperature 97.6 [facility] 97.6 [facility] Diastolic blood 82 mmHg 82 mmHg [facility] Systolic blood 133 mmHg 133 mmHg [facility] Respiratory rate 20 bpm 20 bpm [facility] Heart rate 90 bpm 90 bpm [facility] Body temperature 96.5 [facility] 96.5 [facility] Diastolic blood 83 mmHg 83 mmHg [facility] Systolic blood 130 mmHg 130 mmHg [facility] Respiratory rate 18 bpm 18 bpm [facility] Heart rate 85 bpm 85 bpm [facility] Body weight 210 lbs 210 lbs [facility] Diastolic blood 94 mmHg 94 mmHg [facility] Systolic blood 135 mmHg 135 mmHg [facility] Respiratory rate 18 bpm 18 bpm [facility] Heart rate 97 bpm 97 bpm [facility] Body temperature 97.6 [facility]ahrenheit 97.6 [facility] Diastolic blood 94 mmHg 94 mmHg [facility] Systolic blood 135 mmHg 135 mmHg [facility] Respiratory rate 18 bpm 18 bpm [facility] Heart rate 97 bpm 97 bpm [facility] Body temperature 97.6 [facility] 97.6 [facility] Diastolic blood 81 mmHg 81 mmHg [facility] Systolic blood 117 mmHg 117 mmHg [facility] Respiratory rate 18 bpm 18 bpm [facility] Heart rate 77 bpm 77 bpm [facility] Body temperature 97.1 Fahrenheit 97.1 [facility] Diastolic blood 91 mmHg 91 mmHg [facility] Systolic blood 130 mmHg 130 mmHg [facility] Respiratory rate 18 bpm 18 bpm [facility] Heart rate 80 bpm 80 bpm [facility] Body temperature 97.0 Fahrenheit 97.0 [facility] Diastolic blood 82 mmHg 82 mmHg [facility] Systolic blood 122 mmHg 122 mmHg [facility] Respiratory rate 16 bpm 16 bpm [facility] Heart rate 71 bpm 71 bpm [facility] Body temperature 97.1 Fahrenheit 97.1 [facility] Diastolic blood 89 mmHg 89 mmHg [facility] Systolic blood 130 mmHg 130 mmHg [facility] Respiratory rate 18 bpm 18 bpm [facility] Heart rate 86 bpm 86 bpm [facility] Diastolic blood 94 mmHg 94 mmHg [facility] Systolic blood 136 mmHg 136 mmHg [facility] Respiratory rate 18 bpm 18 bpm [facility] Heart rate 88 bpm 88 bpm [facility] Body temperature 96.8 Fahrenheit 96.8 [facility] Diastolic blood 88 mmHg 88 mmHg [facility] Systolic blood 138 mmHg 138 mmHg [facility] Respiratory rate 18 bpm 18 bpm [facility] Heart rate 77 bpm 77 bpm [facility] Body weight 214 lbs 214 lbs [facility] Diastolic blood 88 mmHg 88 mmHg [facility] Systolic blood 132 mmHg 132 mmHg [facility] Respiratory rate 18 bpm 18 bpm [facility] Heart rate 82 bpm 82 bpm [facility] Diastolic blood 90 mmHg 90 mmHg [facility] Systolic blood 132 mmHg 132 mmHg [facility] Respiratory rate 18 bpm 18 bpm [facility] Heart rate 82 bpm 82 bpm [facility] Body temperature 97.3 Fahrenheit 97.3 [facility] Diastolic blood 89 mmHg 89 mmHg [facility] Systolic blood 128 mmHg 128 mmHg [facility] Respiratory rate 18 bpm 18 bpm [facility] Heart rate 83 bpm 83 bpm [facility] Body temperature 97.3 Fahrenheit 97.3 [facility] Diastolic blood 90 mmHg 90 mmHg [facility] Systolic blood 133 mmHg 133 mmHg [facility] Respiratory rate 18 bpm 18 bpm [facility] Heart rate 84 bpm 84 bpm [facility] Body temperature 96.1 Fahrenheit 96.1 [facility]
--- NOTE | 2020-05-28 15:02 | HP ---
[facility] Rehab Assess/Revision - Admission History Admitted to Rehab from: [address] Date of Admission to Rehab: 05/28/20 - Vital signs Vital Signs: Vital Signs Period Temp Pulse Resp BP Sys/Galarza Pulse Ox Last 24 Hr 98 F 102 18 113/71 97 - Findings Detox History & Physical reviewed: Yes Concur with findings: Yes Comments/Additional Findings: Pt is a 54 y/o male admitted to rehab this afternoon from [address] Reports he has PCP, Dr. Ryan butterfield [place]. PMHx:HTN,DM. Psych hx:Depression. Alert o x 3. nad. oob ambulating with steady gait. extremities:no edema, skin warm, intact. S/P detox. DM. HTN. depression. Increase po fluids. maintain safety. psych consult follow up. Addendum:Pt reports to rehab nurse that he is on Doxepin and Prozac. Pt was not seen or take these meds in detox before coming to rehab. Pt will need to be referred to psych for consult to restart meds. Inpatient Rehab Admission - Rehab Decision to Admit Inpatient rehab admission?: Yes - Initial Determination Are CD services needed?: Yes Free of communicable disease: Yes Not in need of hospitalization: Yes - Rehab Admission Criteria Previous failed treatment: Yes Poor recovery environment: Yes Comorbidities: Yes Lacks judgement: Yes Patient is meeting Inpatient Rehab admission criteria:: Yes
[2020-05-28] MEDS ORDERED: MAG HYDROX/AL HYDROX/SIMETH 30 ML UNIT-DOSE CUP PO PRN (15:04)
[2020-05-28] MEDS ORDERED: LOPERAMIDE HCL 2 MG CAPSULE PO PRN (15:04)
[2020-05-28] MEDS ORDERED: MAGNESIUM HYDROX 2400MG/30ML ORAL SUSPENSION 30 ML CUP PO PRN (15:04)
[2020-05-28] MEDS ORDERED: ACETAMINOPHEN 325 MG TABLET (FP) PO PRN (15:04)
[2020-05-28] MEDS ORDERED: NICOTINE POLACRILEX 2 MG GUM BUC PRN (15:04)
[2020-05-28] MEDS ORDERED: MENTHOL/PHENOL 1 EACH UD MM PRN (15:04)
[2020-05-28] MEDS ORDERED: guaiFENesin 200 MG/10 ML 10 ML UNIT-DOSE CUPS PO PRN (15:04)
[2020-05-28] MEDS ORDERED: MAGNESIUM CITRATE 300 ML BOTTLE PO PRN (15:04)
[2020-05-28] MEDS ORDERED: P-EPHED 60MG/TRIPROLIDI 2.5MG TABLET PO PRN (15:04)
--- NOTE | 2020-05-28 15:54 | CONSULT ---
[facility] Psychiatric Consult - Data Date of interview: 05/28/20 Admission source: [facility] Identifying data: Detoxification completed at [address] [place] [id number]. First admission to [address] for this 54 y/o male seeking continuity of care for maintenance of sobriety, via rehabilitation, in addition to management of co- morbid depression + anxiety. GARRISON issue : alcohol. Patient is single, a father of one, homeless ([facility] : [facility]), unemployed and supported on welfare. Substance Abuse History: Discussed with the patient. GARRISON profile as follows : Smoking history: Never smoked. Have you smoked in the past 12 months: No. Hx Chewing Tobacco Use: No. Substances abused. Alcohol. Substance route: Oral. Frequency: Daily. Amount used: liquor- 3 pits. Age of first use: 22. Date of last use: 05/24/20. Patient indicates that he has been able to remain sober for a period of seven months. Mr Mckeon has reportedly been, in the past, on acamprosate and SANDERS naltrexone (Vivitrol). Medical History: Medical profile is remarkable for traumatic brain injury (fall), seizure disorder, hypertension, dyslipidemia, type 2 diabetes mellitus and history of craniotomy (sub-arachnoid hemorrhage). Psychiatric History: Patient denies history of psychiatric hospitalizations. Diagnosed, years ago, with MDD and prescribed antidepressant medications (SSRI's) + TCA (doxepin for insomnia). Mr Mckeon is currently seeing a psychiatrist at the [facility] (managed with prozac 40 mg). Not always adherent to his medications. Patient denies history of suicide attempts. Physical/Sexual Abuse/Trauma History: Patient denies. Additional Comment: Urine drug screen results: OXY-Oxycodone, BZO- Benzodiazepines. Noted. Mental Status Exam - Mental Status Exam Alert and Oriented to: Time, Place, Person Cognitive Function: Good Patient Appearance: Well Groomed Mood: Anxious, Hopeful Affect: Appropriate, Normal Range Patient Behavior: Appropriate, Cooperative (friendly) Speech Pattern: Clear, Appropriate Voice Loudness: Normal Thought Process: Intact, Goal Oriented Thought Disorder: Not Present Hallucinations: Denies Suicidal Ideation: Denies Homicidal Ideation: Denies Insight/Judgement: Poor Sleep: Poorly, Difficulty falling asleep Appetite: Good Gait/Station: Normal Psychiatric Findings - Problem List ([place] 1, 2,3) (1) Alcohol use disorder Current Visit: Yes Status: Chronic (2) MDD (major depressive disorder) Current Visit: Yes Status: Chronic (3) Insomnia Current Visit: Yes Status: Chronic - Initial Treatment Plan Initial Treatment Plan: Psychoeducation. Support. Motivational counseling done in this session. Patient requests trazodone to address his insomnia. Side effects/benefits of prozac + trazodone are discussed with the patient. Made aware of risk of priapism, sexual dysfunction and potential for occurrence of suicidal ideation. Mr Mckeon is receptive to teaching and he verbalizes his agreement with this plan of care. Resumed : prozac 20 mg po daily (patient reports non-adherence to that medication for more than one month) + trazodone 50 mg po hs. Observation.
[2020-05-28] MEDS: metFORMIN HCL 500 MG TABLET (FP) PO SCH (17:21)
[2020-05-28] MEDS: MELATONIN 5 MG TABLETS PO SCH (21:42)
[2020-05-28] MEDS: traZODone HCL 50 MG TABLET (FP) PO SCH (21:42)
[2020-05-28] MEDS: THIAMINE HCL 100 MG TABLET (FP) PO SCH (21:42)
[2020-05-28] MEDS: hydrOXYzine PAMOATE 25 MG CAPSULE (FP) PO PRN (21:42)
[2020-05-28] MEDS ORDERED: GEMFIBROZIL 600 MG TABLET (FP) PO SCH (22:00)
[2020-05-28] MEDS ORDERED: metFORMIN HCL 500 MG TABLET (FP) PO SCH (22:00)
[2020-05-29] MEDS: metFORMIN HCL 500 MG TABLET (FP) PO SCH ×2 (06:46→16:39)
[2020-05-29] MEDS: GEMFIBROZIL 600 MG TABLET (FP) PO SCH (06:46)
[2020-05-29] MEDS: IBUPROFEN 400 MG TABLET (FP) PO PRN (06:46)
[2020-05-29] MEDS: FLUoxetine HCL 20 MG CAPSULE PO SCH (10:55)
[2020-05-29] MEDS: LISINOPRIL 20 MG TABLET PO SCH (10:55)
[2020-05-29] MEDS: NICOTINE 7 MG/24 HOURS TOPICAL PATCH TD SCH (10:55)
[2020-05-29] MEDS: amLODIPine BESYLATE 10 MG TABLET (FP) PO SCH (10:55)
[2020-05-29] MEDS: PRENATAL VITAMINS W/ FOLIC ACID TABLET (FP) PO SCH (10:55)
[2020-05-29] MEDS: hydrOXYzine PAMOATE 25 MG CAPSULE (FP) PO PRN (21:39)
[2020-05-29] MEDS: traZODone HCL 50 MG TABLET (FP) PO SCH (21:39)
[2020-05-29] MEDS: THIAMINE HCL 100 MG TABLET (FP) PO SCH (21:39)
[2020-05-29] MEDS: MELATONIN 5 MG TABLETS PO SCH (21:40)
[2020-05-30] MEDS: metFORMIN HCL 500 MG TABLET (FP) PO SCH ×2 (06:19→16:34)
[2020-05-30] MEDS: GEMFIBROZIL 600 MG TABLET (FP) PO SCH (06:56)
[2020-05-30] MEDS: hydrOXYzine PAMOATE 25 MG CAPSULE (FP) PO PRN ×3 (09:49→21:46)
[2020-05-30] MEDS: LISINOPRIL 20 MG TABLET PO SCH (09:49)
[2020-05-30] MEDS: FLUoxetine HCL 20 MG CAPSULE PO SCH (09:50)
[2020-05-30] MEDS: amLODIPine BESYLATE 10 MG TABLET (FP) PO SCH (09:50)
[2020-05-30] MEDS: NICOTINE 7 MG/24 HOURS TOPICAL PATCH TD SCH (09:50)
[2020-05-30] MEDS: PRENATAL VITAMINS W/ FOLIC ACID TABLET (FP) PO SCH (09:50)
[2020-05-30] MEDS: IBUPROFEN 400 MG TABLET (FP) PO PRN (14:09)
[2020-05-30] MEDS: THIAMINE HCL 100 MG TABLET (FP) PO SCH (21:46)
[2020-05-30] MEDS: traZODone HCL 50 MG TABLET (FP) PO SCH (21:46)
[2020-05-30] MEDS: MELATONIN 5 MG TABLETS PO SCH (21:46)
[2020-05-31] MEDS: GEMFIBROZIL 600 MG TABLET (FP) PO SCH (06:40)
[2020-05-31] MEDS: metFORMIN HCL 500 MG TABLET (FP) PO SCH ×2 (06:40→16:56)
[2020-05-31] MEDS: FLUoxetine HCL 20 MG CAPSULE PO SCH (10:58)
[2020-05-31] MEDS: amLODIPine BESYLATE 10 MG TABLET (FP) PO SCH (10:58)
[2020-05-31] MEDS: LISINOPRIL 20 MG TABLET PO SCH (10:58)
[2020-05-31] MEDS: PRENATAL VITAMINS W/ FOLIC ACID TABLET (FP) PO SCH (10:58)
[2020-05-31] MEDS: NICOTINE 7 MG/24 HOURS TOPICAL PATCH TD SCH (10:58)
[2020-05-31] MEDS: hydrOXYzine PAMOATE 25 MG CAPSULE (FP) PO PRN ×2 (10:59→22:02)
[2020-05-31] MEDS: IBUPROFEN 400 MG TABLET (FP) PO PRN ×2 (14:34→22:03)
[2020-05-31] MEDS: THIAMINE HCL 100 MG TABLET (FP) PO SCH (22:02)
[2020-05-31] MEDS: MELATONIN 5 MG TABLETS PO SCH (22:02)
[2020-05-31] MEDS: traZODone HCL 50 MG TABLET (FP) PO SCH (22:02)
[2020-06-01] MEDS: metFORMIN HCL 500 MG TABLET (FP) PO SCH ×2 (06:18→16:26)
[2020-06-01] MEDS: GEMFIBROZIL 600 MG TABLET (FP) PO SCH (06:58)
[2020-06-01] MEDS: LISINOPRIL 20 MG TABLET PO SCH (10:50)
[2020-06-01] MEDS: hydrOXYzine PAMOATE 25 MG CAPSULE (FP) PO PRN ×2 (10:50→21:29)
[2020-06-01] MEDS: FLUoxetine HCL 20 MG CAPSULE PO SCH (10:50)
[2020-06-01] MEDS: amLODIPine BESYLATE 10 MG TABLET (FP) PO SCH (10:50)
[2020-06-01] MEDS: PRENATAL VITAMINS W/ FOLIC ACID TABLET (FP) PO SCH (10:51)
[2020-06-01] MEDS: NICOTINE 7 MG/24 HOURS TOPICAL PATCH TD SCH (10:51)
[2020-06-01] MEDS: IBUPROFEN 400 MG TABLET (FP) PO PRN (10:52)
[2020-06-01] MEDS: THIAMINE HCL 100 MG TABLET (FP) PO SCH (21:29)
[2020-06-01] MEDS: traZODone HCL 50 MG TABLET (FP) PO SCH (21:29)
[2020-06-01] MEDS: MELATONIN 5 MG TABLETS PO SCH (22:37)
[2020-06-02] MEDS: metFORMIN HCL 500 MG TABLET (FP) PO SCH ×2 (06:25→16:44)
[2020-06-02] MEDS: GEMFIBROZIL 600 MG TABLET (FP) PO SCH (06:46)
[2020-06-02] MEDS: FLUoxetine HCL 20 MG CAPSULE PO SCH (09:28)
[2020-06-02] MEDS: amLODIPine BESYLATE 10 MG TABLET (FP) PO SCH (09:28)
[2020-06-02] MEDS: NICOTINE 7 MG/24 HOURS TOPICAL PATCH TD SCH (09:28)
[2020-06-02] MEDS: LISINOPRIL 20 MG TABLET PO SCH (09:28)
[2020-06-02] MEDS: PRENATAL VITAMINS W/ FOLIC ACID TABLET (FP) PO SCH (09:28)
[2020-06-02] MEDS: hydrOXYzine PAMOATE 25 MG CAPSULE (FP) PO PRN ×3 (09:29→21:48)
[2020-06-02] MEDS: IBUPROFEN 400 MG TABLET (FP) PO PRN (16:44)
[2020-06-02] MEDS: THIAMINE HCL 100 MG TABLET (FP) PO SCH (21:48)
[2020-06-02] MEDS: traZODone HCL 50 MG TABLET (FP) PO SCH (21:48)
[2020-06-02] MEDS: MELATONIN 5 MG TABLETS PO SCH (21:48)
[2020-06-03] MEDS: metFORMIN HCL 500 MG TABLET (FP) PO SCH ×2 (06:25→16:29)
[2020-06-03] MEDS: hydrOXYzine PAMOATE 25 MG CAPSULE (FP) PO PRN ×3 (06:26→21:28)
[2020-06-03] MEDS: GEMFIBROZIL 600 MG TABLET (FP) PO SCH (07:10)
[2020-06-03] MEDS: amLODIPine BESYLATE 10 MG TABLET (FP) PO SCH (10:47)
[2020-06-03] MEDS: FLUoxetine HCL 20 MG CAPSULE PO SCH (10:47)
[2020-06-03] MEDS: LISINOPRIL 20 MG TABLET PO SCH (10:47)
[2020-06-03] MEDS: NICOTINE 7 MG/24 HOURS TOPICAL PATCH TD SCH (10:48)
[2020-06-03] MEDS: PRENATAL VITAMINS W/ FOLIC ACID TABLET (FP) PO SCH (10:48)
[2020-06-03] MEDS: IBUPROFEN 400 MG TABLET (FP) PO PRN (10:49)
[2020-06-03] MEDS: THIAMINE HCL 100 MG TABLET (FP) PO SCH (21:28)
[2020-06-03] MEDS: MELATONIN 5 MG TABLETS PO SCH (21:28)
[2020-06-03] MEDS: traZODone HCL 50 MG TABLET (FP) PO SCH (21:28)
[2020-06-04] MEDS: GEMFIBROZIL 600 MG TABLET (FP) PO SCH (07:50)
[2020-06-04] MEDS: metFORMIN HCL 500 MG TABLET (FP) PO SCH ×2 (07:51→16:27)
[2020-06-04] MEDS: FLUoxetine HCL 20 MG CAPSULE PO SCH (09:21)
[2020-06-04] MEDS: LISINOPRIL 20 MG TABLET PO SCH (09:21)
[2020-06-04] MEDS: NICOTINE 7 MG/24 HOURS TOPICAL PATCH TD SCH (09:21)
[2020-06-04] MEDS: amLODIPine BESYLATE 10 MG TABLET (FP) PO SCH (09:21)
[2020-06-04] MEDS: PRENATAL VITAMINS W/ FOLIC ACID TABLET (FP) PO SCH (09:22)
[2020-06-04] MEDS: hydrOXYzine PAMOATE 25 MG CAPSULE (FP) PO PRN ×3 (09:22→21:24)
[2020-06-04] MEDS: IBUPROFEN 400 MG TABLET (FP) PO PRN (10:16)
[2020-06-04] MEDS: THIAMINE HCL 100 MG TABLET (FP) PO SCH (21:24)
[2020-06-04] MEDS: traZODone HCL 50 MG TABLET (FP) PO SCH (21:24)
[2020-06-04] MEDS: MELATONIN 5 MG TABLETS PO SCH (21:25)
[2020-06-05] MEDS: metFORMIN HCL 500 MG TABLET (FP) PO SCH ×2 (06:28→16:54)
[2020-06-05] MEDS: GEMFIBROZIL 600 MG TABLET (FP) PO SCH (07:14)
[2020-06-05] MEDS: FLUoxetine HCL 20 MG CAPSULE PO SCH (09:59)
[2020-06-05] MEDS: amLODIPine BESYLATE 10 MG TABLET (FP) PO SCH (10:00)
[2020-06-05] MEDS: LISINOPRIL 20 MG TABLET PO SCH (10:00)
[2020-06-05] MEDS: PRENATAL VITAMINS W/ FOLIC ACID TABLET (FP) PO SCH (10:00)
[2020-06-05] MEDS: NICOTINE 7 MG/24 HOURS TOPICAL PATCH TD SCH (10:00)
[2020-06-05] MEDS: hydrOXYzine PAMOATE 25 MG CAPSULE (FP) PO PRN ×3 (10:00→21:42)
[2020-06-05] MEDS: IBUPROFEN 400 MG TABLET (FP) PO PRN (10:11)
[2020-06-05] MEDS: traZODone HCL 50 MG TABLET (FP) PO SCH (21:42)
[2020-06-05] MEDS: MELATONIN 5 MG TABLETS PO SCH (21:42)
[2020-06-05] MEDS: THIAMINE HCL 100 MG TABLET (FP) PO SCH (21:43)
[2020-06-06] MEDS: IBUPROFEN 400 MG TABLET (FP) PO PRN (06:31)
[2020-06-06] MEDS: metFORMIN HCL 500 MG TABLET (FP) PO SCH ×2 (06:31→17:02)
[2020-06-06] MEDS: GEMFIBROZIL 600 MG TABLET (FP) PO SCH (06:31)
[2020-06-06] MEDS: amLODIPine BESYLATE 10 MG TABLET (FP) PO SCH (10:10)
[2020-06-06] MEDS: LISINOPRIL 20 MG TABLET PO SCH (10:10)
[2020-06-06] MEDS: FLUoxetine HCL 20 MG CAPSULE PO SCH (10:10)
[2020-06-06] MEDS: hydrOXYzine PAMOATE 25 MG CAPSULE (FP) PO PRN ×2 (10:10→21:51)
[2020-06-06] MEDS: PRENATAL VITAMINS W/ FOLIC ACID TABLET (FP) PO SCH (10:11)
[2020-06-06] MEDS: NICOTINE 7 MG/24 HOURS TOPICAL PATCH TD SCH (10:12)
[2020-06-06] MEDS: THIAMINE HCL 100 MG TABLET (FP) PO SCH (21:51)
[2020-06-06] MEDS: MELATONIN 5 MG TABLETS PO SCH (21:51)
[2020-06-06] MEDS: traZODone HCL 50 MG TABLET (FP) PO SCH (21:51)
[2020-06-07] MEDS: metFORMIN HCL 500 MG TABLET (FP) PO SCH ×2 (06:33→16:47)
[2020-06-07] MEDS: GEMFIBROZIL 600 MG TABLET (FP) PO SCH (06:34)
[2020-06-07] MEDS: NICOTINE 7 MG/24 HOURS TOPICAL PATCH TD SCH (09:40)
[2020-06-07] MEDS: LISINOPRIL 20 MG TABLET PO SCH (09:42)
[2020-06-07] MEDS: amLODIPine BESYLATE 10 MG TABLET (FP) PO SCH (09:42)
[2020-06-07] MEDS: PRENATAL VITAMINS W/ FOLIC ACID TABLET (FP) PO SCH (09:42)
[2020-06-07] MEDS: FLUoxetine HCL 20 MG CAPSULE PO SCH (10:29)
[2020-06-07] MEDS: IBUPROFEN 400 MG TABLET (FP) PO PRN (15:57)
[2020-06-07] MEDS: traZODone HCL 50 MG TABLET (FP) PO SCH (21:37)
[2020-06-07] MEDS: hydrOXYzine PAMOATE 25 MG CAPSULE (FP) PO PRN (21:37)
[2020-06-07] MEDS: MELATONIN 5 MG TABLETS PO SCH (21:37)
[2020-06-07] MEDS: THIAMINE HCL 100 MG TABLET (FP) PO SCH (21:37)
[2020-06-08] MEDS: metFORMIN HCL 500 MG TABLET (FP) PO SCH ×2 (06:39→16:27)
[2020-06-08] MEDS: GEMFIBROZIL 600 MG TABLET (FP) PO SCH (06:39)
[2020-06-08] MEDS: LISINOPRIL 20 MG TABLET PO SCH (10:41)
[2020-06-08] MEDS: PRENATAL VITAMINS W/ FOLIC ACID TABLET (FP) PO SCH (10:41)
[2020-06-08] MEDS: FLUoxetine HCL 20 MG CAPSULE PO SCH (10:41)
[2020-06-08] MEDS: amLODIPine BESYLATE 10 MG TABLET (FP) PO SCH (10:41)
[2020-06-08] MEDS: NICOTINE 7 MG/24 HOURS TOPICAL PATCH TD SCH (10:42)
[2020-06-08] MEDS: hydrOXYzine PAMOATE 25 MG CAPSULE (FP) PO PRN ×3 (10:43→21:34)
[2020-06-08] MEDS: IBUPROFEN 400 MG TABLET (FP) PO PRN ×2 (14:04→21:33)
[2020-06-08] MEDS: THIAMINE HCL 100 MG TABLET (FP) PO SCH (21:34)
[2020-06-08] MEDS: MELATONIN 5 MG TABLETS PO SCH (21:34)
[2020-06-08] MEDS: traZODone HCL 50 MG TABLET (FP) PO SCH (21:34)
[2020-06-09] MEDS: metFORMIN HCL 500 MG TABLET (FP) PO SCH ×2 (06:42→16:40)
[2020-06-09] MEDS: GEMFIBROZIL 600 MG TABLET (FP) PO SCH (06:42)
[2020-06-09] MEDS: hydrOXYzine PAMOATE 25 MG CAPSULE (FP) PO PRN ×2 (06:43→21:38)
[2020-06-09] MEDS: NICOTINE 7 MG/24 HOURS TOPICAL PATCH TD SCH (09:23)
[2020-06-09] MEDS: LISINOPRIL 20 MG TABLET PO SCH (09:23)
[2020-06-09] MEDS: amLODIPine BESYLATE 10 MG TABLET (FP) PO SCH (09:23)
[2020-06-09] MEDS: FLUoxetine HCL 20 MG CAPSULE PO SCH (09:23)
[2020-06-09] MEDS: PRENATAL VITAMINS W/ FOLIC ACID TABLET (FP) PO SCH (09:25)
[2020-06-09] MEDS: IBUPROFEN 400 MG TABLET (FP) PO PRN ×2 (09:25→16:02)
--- NOTE | 2020-06-09 15:01 | PN ---
[facility] Progress Note Note: Patient is scheduled for discharge on 06/11/20. Scripts for 30 days supply of medications( Trazadone 50 mg/hs, Prozac 20 mg/day) will be electronically transmitted to [facility] [place] [address] [place] [place] [address]
[2020-06-09] MEDS: THIAMINE HCL 100 MG TABLET (FP) PO SCH (21:38)
[2020-06-09] MEDS: traZODone HCL 50 MG TABLET (FP) PO SCH (21:38)
[2020-06-09] MEDS: MELATONIN 5 MG TABLETS PO SCH (21:38)
[2020-06-10] MEDS: IBUPROFEN 400 MG TABLET (FP) PO PRN (06:42)
[2020-06-10] MEDS: metFORMIN HCL 500 MG TABLET (FP) PO SCH ×2 (08:41→16:41)
[2020-06-10] MEDS: GEMFIBROZIL 600 MG TABLET (FP) PO SCH (08:42)
[2020-06-10] MEDS: amLODIPine BESYLATE 10 MG TABLET (FP) PO SCH (09:33)
[2020-06-10] MEDS: FLUoxetine HCL 20 MG CAPSULE PO SCH (09:33)
[2020-06-10] MEDS: NICOTINE 7 MG/24 HOURS TOPICAL PATCH TD SCH (09:33)
[2020-06-10] MEDS: hydrOXYzine PAMOATE 25 MG CAPSULE (FP) PO PRN ×2 (09:34→21:20)
[2020-06-10] MEDS: LISINOPRIL 20 MG TABLET PO SCH (09:34)
[2020-06-10] MEDS: PRENATAL VITAMINS W/ FOLIC ACID TABLET (FP) PO SCH ×2 (10:59→11:00)
--- NOTE | 2020-06-10 16:15 | PN ---
[facility] Progress Note Note: Pt requesting flu vaccine before discharging tomorrow. Vital Signs - 24 hr 06/09/20 06/10/20 20:03 06:32 Temperature 97.1 F L Pulse Rate 96 H Respiratory 19 Rate Blood Pressure 120/77 O2 Sat by Pulse 96 95 Oximetry (%) Alert o x 3 nad oob ambulating with steady gait pt may have Flu vaccine today as directed.
[2020-06-10] MEDS ORDERED: FLU VACCINE (FLULAVAL) PF 60 MCG/0.5 ML SYRINGE 2020-2021 IM ONE (18:17)
[2020-06-10] MEDS: MELATONIN 5 MG TABLETS PO SCH (21:20)
[2020-06-10] MEDS: THIAMINE HCL 100 MG TABLET (FP) PO SCH (21:20)
[2020-06-10] MEDS: traZODone HCL 50 MG TABLET (FP) PO SCH (21:20)
[2020-06-11] MEDS: IBUPROFEN 400 MG TABLET (FP) PO PRN (06:51)
[2020-06-11] MEDS: GEMFIBROZIL 600 MG TABLET (FP) PO SCH (06:52)
[2020-06-11] MEDS: metFORMIN HCL 500 MG TABLET (FP) PO SCH (06:52)
[2020-06-11] MEDS: hydrOXYzine PAMOATE 25 MG CAPSULE (FP) PO PRN (06:52)
[2020-06-11 06:57] VITALS: BP 115/81; PULSE 80; TEMP 97.5
--- NOTE | 2020-06-11 09:32 | DS ---
[facility] Rehab Discharge Summary - [facility] Rehab Discharge Summary Admission Date: 05/28/20 Discharge Date: 06/11/20 - History Present History: Alcohol dependence Pertinent Past History: HTN HLD DM Seizure disorder hx (no med) Hx TBI w/ Subarachnoid Hemorrhage(SAH) Depression - Discharge Physical Exam Vital Signs: Vital Signs Temperature 97.5 F L 06/11/20 06:17 Pulse Rate 80 06/11/20 06:17 Respiratory Rate 18 06/11/20 06:17 Blood Pressure 115/81 06/11/20 06:17 O2 Sat by Pulse Oximetry (%) 98 06/11/20 06:17 General;WDWN male, Alert o x 3, nad Cardiac:s1 s2,rrr lungs:ctab abdomen:soft, +bs,nt,nd MSK/Skin:Active FROM, all limbs; oob ambulating with steady gait; no edema, skin intact. Pertinent Admission Physical Exam Findings: Laboratory Tests 05/28/20 05/29/20 05/29/20 17:20 06:45 16:39 POC Glucometer 129 139 140 05/30/20 05/30/20 05/31/20 06:18 16:33 06:39 POC Glucometer 116 131 101 05/31/20 06/01/20 06/01/20 16:55 06:17 16:24 POC Glucometer 122 105 147 06/02/20 06/02/20 06/03/20 06:25 16:43 06:24 POC Glucometer 95 117 116 06/03/20 06/04/20 06/04/20 16:27 07:30 16:25 POC Glucometer 103 110 85 06/05/20 06/05/20 06/06/20 06:23 16:53 06:30 POC Glucometer 97 99 101 06/06/20 06/07/20 06/07/20 17:01 06:33 16:47 POC Glucometer 88 90 84 06/08/20 06/08/20 06/09/20 06:38 16:24 06:41 POC Glucometer 92 117 96 06/09/20 06/10/20 06/10/20 16:40 07:08 16:40 POC Glucometer 98 108 90 06/11/20 06:50 POC Glucometer 116 - Treatment Discharge Condition: Discharge condition good, Rehabilitated safely, Responded well, Outpatient referral accepted Hospital Course: Nohemi is a 54 y/o male admitted to rehab and discharged today after treatment completion. [facility] [place] [place] - Medication Discharge Medications: Ambulatory Orders Amlodipine Besylate [Norvasc -] 10 mg PO DAILY 07/25/16 Ergocalciferol [Vitamin D2] 50,000 unit PO Q7D@1000 06/21/19 Folic Acid 1 mg PO DAILY 06/21/19 Multivitamins [Multivit ([facility] Formulary)] 1 tab PO DAILY 06/21/19 Thiamine HCl [Vitamin B-1] 100 mg PO HS 06/21/19 metFORMIN HCL [Glucophage -] 500 mg PO BIDAC 06/21/19 Gemfibrozil [Lopid -] 600 mg PO DAILY 06/23/19 Doxepin HCl [Sinequan -] 25 mg PO HS 05/24/20 Ibuprofen [Motrin -] 800 mg PO TID 05/24/20 Lisinopril [Prinivil] 20 mg PO DAILY 05/24/20 Fluoxetine HCl [Prozac] 40 mg PO DAILY 05/28/20 Fluoxetine HCl [Prozac -] 20 mg PO DAILY #30 capsule 06/09/20 traZODone HCL [Desyrel -] 50 mg PO HS #30 tablet 06/09/20 - Medication-Assisted Treatment (MAT) Medication-Assisted Treatment (MAT): No - Discharge Instructions Diet, activity, other medical instructions: Diet:NORBERTO/NCS Activity: oob ad jluis Other medical instructions:f/u with PCP, Dr. Reyes at [facility] for medical management of comorbid conditions as scheduled. 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 Pt instructed to mushroom picker his refills after discharge today.
[2020-06-11] MEDS: LISINOPRIL 20 MG TABLET PO SCH (09:33)
[2020-06-11] MEDS: PRENATAL VITAMINS W/ FOLIC ACID TABLET (FP) PO SCH (09:33)
[2020-06-11] MEDS: NICOTINE 7 MG/24 HOURS TOPICAL PATCH TD SCH (09:33)
[2020-06-11] MEDS: FLUoxetine HCL 20 MG CAPSULE PO SCH (09:33)
[2020-06-11] MEDS: amLODIPine BESYLATE 10 MG TABLET (FP) PO SCH (09:33)
[2020-06-11] MEDS ORDERED: FLU VACCINE (FLULAVAL) PF 60 MCG/0.5 ML SYRINGE 2020-2021 IM ONE (12:00)
== END 2020-06-11 10:20 | disposition other institution (70) | DRG 772 ==
LOC: YASAS 13:10 → Y5N 13:15
PROVIDERS: ADMIT Allergy & Immunology; ATTEND Allergy & Immunology
PROC: HZ42ZZZ Group Counseling for Substance Abuse Treatment, Cognitive-Behavioral (ICD-10-PCS; principal; 2020-05-28)
DX: F10.20 Alcohol dependence, uncomplicated (principal); F41.9 Anxiety disorder, unspecified; F32.9 Major depressive disorder, single episode, unspecified; G47.00 Insomnia, unspecified; I10 Essential (primary) hypertension; E78.5 Hyperlipidemia, unspecified; E11.9 Type 2 diabetes mellitus without complications; Z79.84 Long term (current) use of oral hypoglycemic drugs; Z86.69 Personal history of other diseases of the nervous system and sense organs; Z87.820 Personal history of traumatic brain injury; Z98.890 Other specified postprocedural states; Z56.0 Unemployment, unspecified; Z59.0 Homelessness
CPT/HCPCS: 82962; Q2036